=== PATIENT | male | born 1950 | race Caucasian/White ===

== ENCOUNTER 2021-05-13 16:16 | Inpatient (IN) | payer OTHER, BC, SELFPAY ==
[~2021-05-13] VITALS: Ht 177.8 cm; Wt 32.5 kg
[2021-05-13 16:16] VITALS: BP_SYST 130
--- NOTE | 2021-05-13 16:16 | NUR ---
Patient triaged and placed in bed 8. VSS and patient appears in no acute distress at this time. MD notified of need for MSE. Attached to monitor resting in [facility].
--- NOTE | 2021-05-13 16:20 | NUR ---
[facility] had recent right BKA procedure and there is a possible bone exposure pt reports 10/10 pain in the right extremtiy. Pt has bilateral lower extremity amputations. Pt is bed bound AAOX4. VSS no signs of distress. Pt has right extremity elevated.
--- NOTE | 2021-05-13 16:25 | NUR ---
ER at bedside examining patient.
--- NOTE | 2021-05-13 16:53 | NUR ---
X-ray at bedside.
--- NOTE | 2021-05-13 17:10 | NUR ---
Lab at bedside.
[2021-05-13 17:28] LABS: BASOPHILS % (AUTO) 0.4 % (0.0-2.0); EOSINOPHILS # (AUTO) 0.1 K/uL (0.0-0.4); EOSINOPHILS % (AUTO) 1.5 % (0.0-4.0); HEMATOCRIT 24.4 % (36-54); HEMOGLOBIN 8.5 g/dL (14.0-18.0); LYMPHOCYTES % (AUTO) 19.3 % (20.5-51.5); MEAN CORPUSCULAR HEMOGLOBIN 31 pg (27-31); MEAN CORPUSCULAR HGB CONC 35 % (32-36); MEAN CORPUSCULAR VOLUME 89 fL (79.0-98.0); MONOCYTES # (AUTO) 0.9 K/uL (0.0-1.0); NEUTROPHILS # (AUTO) 7.2 K/uL (1.8-7.7); NEUTROPHILS % (AUTO) 69.8 % (40.0-70.0); PLATELET COUNT (AUTO) 596 K/uL (130-430); RED BLOOD CELL COUNT(AUTO) 2.75 MIL/uL (4.2-6.2); RED CELL DISTRIBUTION WIDTH 17.7 % (9.0-15.0); WHITE BLOOD COUNT (AUTO) 10.3 K/uL (4.8-10.8)
[2021-05-13 18:03] LABS: CALCIUM 8.1 mg/dL (8.4-11.0); CREATININE 0.54 mg/dL (0.55-1.30); POTASSIUM 4.2 mmol/L (3.5-5.1)
[2021-05-13 18:08] LABS: ALBUMIN 1.4 g/dL (3.4-4.8); TOTAL BILIRUBIN 0.3 mg/dL (0.0-1.0)
[2021-05-13 18:19] LABS: INR 1.4 (0.80-1.20); PROTHROMBIN TIME 14.4 SECS (9.5-12.5)
[2021-05-13 18:33] LABS: C-REACTIVE PROTEIN QUANT 13.2 mg/dL (0-0.5)
--- NOTE | 2021-05-13 19:03 | NUR ---
# 20 gauge angiocath placed to RFA. Use of asceptic technique. Opsite placed over site. Blood return noted. Blood for lab drawn from site. Flushed with 10 cc of normal saline. No evidence of infiltration noted. Patient tolerated well.
--- NOTE | 2021-05-13 19:22 | NUR ---
Covid and MRSA swab collected and sent to lab.
--- NOTE | 2021-05-13 19:22 | NUR ---
Report given to Cheli.
--- NOTE | 2021-05-13 19:23 | NUR ---
Received endorsement from day shift, AAOX2, breathing spontaneously with O2 at 2L/MIN via nasal cannula, [id number] not in distress noted, With IV cannula g20 at right foreram noted, right stump noted. Admitted as a case of RT STUMP GANGRENE under the care of Dr. Padilla to Telemetry, awaiting for room.
[2021-05-13] MEDS ORDERED: VANCOMYCIN HCL 1 GM/NS PREMIX 250 ML IV ONE (20:30)
[2021-05-13] MEDS ORDERED: SEVOFLURANE 15 MIN GAS INH ONE ×2 (20:49→20:55)
[2021-05-13] MEDS ORDERED: MIDAZOLAM HCL 5 MG/5 ML VIAL IVP ONE (20:49)
[2021-05-13] MEDS ORDERED: METOCLOPRAMIDE HCL 10 MG/2 ML VIAL IVP ONE (20:49)
[2021-05-13] MEDS ORDERED: DEXAMETHASONE SOD PHOSPHATE 10 MG/ML VIAL IVP ONE (20:49)
[2021-05-13] MEDS ORDERED: fentaNYL CITRATE/PF 100 MCG/2 ML AMP IVP ONE (20:49)
[2021-05-13] MEDS ORDERED: LIDOCAINE 1% 10 MG/ML, 20 ML MDV IM ONE (20:49)
[2021-05-13] MEDS ORDERED: LR 1,000 ML IV.SOLN IV ONE (20:49)
[2021-05-13] MEDS ORDERED: PROPOFOL 200MG/ 20ML VIAL (DIPRIVAN) IV ONE ×2 (20:49→20:55)
[2021-05-13] MEDS ORDERED: ePHEDrine sulfate 50 MG/ML VIAL IM ONE (20:49)
[2021-05-13] MEDS ORDERED: NS IRRIG SOLN 1000 ML IR ONE ×2 (20:49→20:55)
[2021-05-13] MEDS ORDERED: KETOROLAC TROMETHAMINE 30 MG VIAL IVP ONE (20:55)
[2021-05-13] MEDS ORDERED: ONDANSETRON HCL 4 MG/2 ML VIAL IVP ONE (20:55)
--- NOTE | 2021-05-13 21:30 | NUR ---
Patient's code status is FULL CODE, paperwork completed and placed in chart.
[2021-05-13] MEDS ORDERED: VANCOMYCIN HCL 1000 MG/VIAL IV ONE (21:33)
[2021-05-13] MEDS ORDERED: PIPERACILLIN/TAZOBACTAM 3.375 GM/VIAL (ZOSYN) IV ONE (21:33)
--- NOTE | 2021-05-13 21:42 | NUR ---
Medication given as ordered, health teaching provided
[2021-05-13] MEDS: PIPERACILLIN/TAZO 3.375/DEX-IS 50 ML IV SCH (21:43)
--- NOTE | 2021-05-13 22:21 | NUR ---
Medication reconciliation completed with information provided by the patient medical record from facility. Any prior medication reconciliation on file was reviewed and corrected.
[2021-05-13] MEDS ORDERED: [UNRECOGNIZED DRUG - CODE] MC (22:22)
[2021-05-13] MEDS ORDERED: APIX5TAB PO (22:22)
[2021-05-13] MEDS ORDERED: ASPI-1155 PO (22:22)
[2021-05-13] MEDS ORDERED: HYDR-3921 PO (22:22)
[2021-05-13] MEDS ORDERED: CLON0.1T PO (22:22)
[2021-05-13] MEDS ORDERED: COLL30OI2 TP (22:22)
[2021-05-13] MEDS ORDERED: DIVA-72 PO (22:22)
[2021-05-13] MEDS ORDERED: TAMS-11 PO (22:22)
[2021-05-13] MEDS ORDERED: MOM PO (22:22)
[2021-05-13] MEDS ORDERED: NYST15CR2 TP (22:22)
[2021-05-13] MEDS ORDERED: CHOL100038 (22:22)
[2021-05-13] MEDS ORDERED: IPRA4AER INH (22:22)
[2021-05-13] MEDS ORDERED: HYDR-4497 (22:22)
[2021-05-13] MEDS ORDERED: MIRT7.5T11 PO (22:22)
[2021-05-13] MEDS ORDERED: ZINC10LO5 PO (22:22)
[2021-05-13] MEDS ORDERED: CRAN450T9 PO (22:22)
[2021-05-13] MEDS ORDERED: DILT60TA3 PO (22:22)
[2021-05-13] MEDS ORDERED: SILV20CR13 TP (22:22)
[2021-05-13] MEDS ORDERED: ASCO500T20 PO (22:22)
[2021-05-13] MEDS ORDERED: DOCU-156 PO (22:22)
[2021-05-13] MEDS ORDERED: INSU100V42 SUBCUT (22:22)
[2021-05-13] MEDS ORDERED: SENN-278 (22:22)
[2021-05-13] MEDS ORDERED: BISA10SU61 RC (22:22)
[2021-05-13] MEDS ORDERED: CARV6.2554 PO (22:22)
[2021-05-13] MEDS ORDERED: ACET325C6 PO (22:22)
[2021-05-13] MEDS ORDERED: ZINC10OI TP (22:22)
[2021-05-13] MEDS ORDERED: TRAM100T34 PO (22:22)
[2021-05-13] MEDS ORDERED: MULT15TA3 PO (22:22)
[2021-05-13] MEDS ORDERED: FERR-31 PO (22:22)
[2021-05-13] MEDS ORDERED: GLUC1VIA4 IM (22:22)
[2021-05-13] MEDS ORDERED: PANT40TA45 PO (22:22)
[2021-05-13] MEDS ORDERED: METH5TAB70 PO (22:22)
--- NOTE | 2021-05-13 22:29 | NUR ---
Transfer to Telemetry 118A via ACLS protocol. Licensed nurse present. IV present no signs or symptoms of infiltration.
--- NOTE | 2021-05-13 22:43 | NUR ---
ADMISSION NOTE Received patient from ER via kj, received report from MARYA PEREZ. Patient admitted with diagnosis of GANGREEN IN RIGHT STUMP. Patient oriented to hospital routine, call light, toileting and safety-patient verbalized understanding.
--- NOTE | 2021-05-13 22:59 | NUR ---
Endorsed to CHRIS Hernandez in stable condition for continuity of care.
[2021-05-13 23:00] VITALS: BP_SYST 99
--- NOTE | 2021-05-13 23:00 | NUR ---
INITIAL NOTES PATIENT RESTING, NO SIGNS OF DISTRESS NOTED. CALL LIGHT WITHIN REACH, PATIENT DEMONSTRATES PROPER CALL LIGHT USAGE, BED ALARM ON, BED AT LOWEST POSITION, BED LOCKED. FALL, SAFETY, RESPIRATORY, AND ISOLATION PRECAUTIONS IN PLACE. DISCUSSED PLAN OF CARE WITH PATIENT. WILL CONTINUE TO MONITOR.
[2021-05-14] VITALS: BP_SYST 122
--- NOTE | 2021-05-14 00:29 | NUR ---
PATIENT REFUSES TO TAKE PICTURES AND GET AEROBIC CULTURE AT THIS TIME DESPITE PATIENT EDUCATION PROVIDED. PATIENT ALSO COVERS FACE WITH A SHEET AND DOES NOT WANT TO UNCOVER THE SHEET WILL ATTEMPT AGAIN AT A LATER TIME.
--- NOTE | 2021-05-14 02:12 | NUR ---
CONSULT: CONSULT CALLED FOR DR. MELINDA Alberto SPOKE WITH KOJO NGUYEN REASON FOR CONSULT: WOUND GANGRENE REQUESTING CONSULT: DR. OSULLIVAN VIDEO CAMERA OPERATOR PHONE NUMBER: [phone]
--- NOTE | 2021-05-14 03:39 | NUR ---
PATIENT RESTING, NO SIGNS OF DISTRESS NOTED. WILL CONTINUE TO MONITOR.
[2021-05-14] MEDS ORDERED: PIPERACILLIN/TAZOBACTAM 3.375 GM/VIAL (ZOSYN) IV ONE (05:44)
[2021-05-14] MEDS: PIPERACILLIN/TAZO 3.375/DEX-IS 50 ML IV SCH ×3 (06:10→21:14)
--- NOTE | 2021-05-14 06:30 | NUR ---
SPOKE TO DR. OSULLIVAN. RECEIVED NEW ORDERS FOR NORCO 10-325 Q4P FOR SEVERE PAIN, ACCU CHECK Q6, AND REGULAR INSULIN SLIDING SCALE, WOUND CARE AND WOUND CONSULT ORDERS. WILL FOLLOW THROUGH.
[2021-05-14] MEDS ORDERED: D5W 1,000 ML IV PRN (06:45)
[2021-05-14] MEDS ORDERED: DEXTROSE 50% JECT 50 ML DISP.SYRIN IVP PRN (06:45)
[2021-05-14] MEDS ORDERED: GLUCOSE (DEXTROSE) ORAL GEL -Adults PO PRN (06:45)
[2021-05-14] MEDS ORDERED: NALOXONE HCL 0.4 MG/ML AMP (NARCAN) IVP PRN (06:45)
--- NOTE | 2021-05-14 06:49 | NUR ---
CLOSING NOTES PATIENT RESTING, NO SIGNS OF DISTRESS NOTED. CALL LIGHT WITHIN REACH, BED ALARM ON, BED AT LOWEST POSITION, BED LOCKED. FALL, RESPIRATORY, ISOLATION, SAFETY, AND ASPIRATION PRECAUTIONS IN PLACE THROUGHOUT SHIFT. ALL NEEDS MET THROUGHOUT SHIFT. WILL ENDORSE CARE TO ONCOMING SHIFT.
--- NOTE | 2021-05-14 06:50 | NUR ---
Nutrition Update Arjun Scale 15 noted. Pt admitted for Gangrene Right stump Diet: [facility] BMI: 9.8 (?) kg/m2 RD to follow per nutrition care standards.
[2021-05-14 08:00] VITALS: BP_SYST 123
--- NOTE | 2021-05-14 08:00 | NUR ---
initial notes rec patient asleep but arousable to stimuli. ivl infusing well with on the r forearm. no infiltration noted. dressing on the r aka stump is intact and dry. no sob noted.
[2021-05-14 12:00] VITALS: BP_SYST 118
[2021-05-14] MEDS: VANCOMYCIN HCL 500 MG in NS 100 ML IV SCH ×2 (12:36→22:25)
--- NOTE | 2021-05-14 12:40 | NUR ---
rounds accucheck was done. no hypo hyperglycemic reaction noted. vancomycin abx was infused. assisted to use urinal and xochilt well.
--- NOTE | 2021-05-14 15:13 | NUR ---
CONSULTATION PAGED REASON FOR CONSULTATION:RIGHT STUMP EVAL WAS CONSULT CALLED?Y PERSON WHO WAS NOTIFIED:[facility]CHO CONSULTING PHYSICIAN:MASOUD POTTER FACSIMILE OPERATOR SPECIALTY:SURGEON FACSIMILE OPERATOR PHONE NUMBER:[phone] REQUESTING PHYSICIAN:ADAIR ENRIQUEZ
[2021-05-14] MEDS ORDERED: cloNIDine HCL 0.1 MG TABLET PO PRN (15:15)
--- NOTE | 2021-05-14 15:23 | NUR ---
CONSULTATION PAGED REASON FOR CONSULTATION:HX AFIB WAS CONSULT CALLED?Y PERSON WHO WAS NOTIFIED:EXCHANGE CONSULTING PHYSICIAN:ANNABELLA WEINBERG POLICY AND PLANNING MANAGER SPECIALTY:CARDIO POLICY AND PLANNING MANAGER PHONE NUMBER:[phone] REQUESTING PHYSICIAN:DORIS CARRASQUILLO NP
[2021-05-14 16:00] VITALS: BP_SYST 120
--- NOTE | 2021-05-14 18:30 | NUR ---
closing notes no sob noted. ambulates to the br.
--- NOTE | 2021-05-14 19:00 | NUR ---
OPENING NOTES PATIENT RESTING, NO SIGNS OF DISTRESS NOTED. CALL LIGHT WITHIN REACH, PATIENT DEMONSTRATES PROPER CALL LIGHT USAGE, BED ALARM ON, BED AT LOWEST POSITION, BED LOCKED. FALL, SAFETY, RESPIRATORY, AND ASPIRATION PRECAUTIONS IN PLACE. DISCUSSED PLAN OF CARE WITH PATIENT. RECEIVED REPORT THAT PATIENT TO NOT RECEIVE ELIQUIS IF PATIENT TO HAVE SURGERY. WILL CONTINUE TO MONITOR.
[2021-05-14] MEDS ORDERED: APIXABAN 2.5 MG TABLET PO SCH (21:00)
[2021-05-14] MEDS: TAMSULOSIN HCL 0.4 MG CAP PO SCH (21:13)
[2021-05-14] MEDS: DIVALPROEX SODIUM 250 MG TABLET(DEPAKOTE) PO SCH (21:14)
[2021-05-14] MEDS: CARVEDILOL 6.25 MG TABLET (COREG) PO SCH (21:14)
[2021-05-14] MEDS: ASCORBIC ACID 500 MG TABLET PO SCH (21:14)
[2021-05-14] MEDS: HYDROcodone/ACETAMIN 10-325 MG TAB PO PRN (22:24)
[2021-05-14] MEDS: NYSTATIN/TRIAMCIN 15 GM TOPICAL CREAM TP SCH (22:25)
--- NOTE | 2021-05-15 | NUR ---
PATIENT DRINKS ORANGE JUICE AND APPLE SAUCE. PATIENT REFUSES KAZ CRACKERS OR SALTINES BUT EATS SOME CHEERIOS IN APPLE SAUCE. NO ASPIRATION NOTED AND NO S/S OF HYPOGLYCEMIA NOTED. WILL CONTINUE TO MONITOR.
[2021-05-15 00:41] VITALS: BP_SYST 100; BP_SYST 101
--- NOTE | 2021-05-15 02:10 | NUR ---
DR. LAWRENCE MAKING ROUNDS.
--- NOTE | 2021-05-15 04:35 | NUR ---
PATIENT RESTING, NO SIGNS OF DISTRESS NOTED. WILL CONTINUE TO MONITOR.
[2021-05-15] MEDS: PIPERACILLIN/TAZO 3.375/DEX-IS 50 ML IV SCH ×3 (05:13→21:15)
--- NOTE | 2021-05-15 05:22 | NUR ---
WOUND CARE AND INCONTINENCE CARE PROVIDED. PATIENT TOLERATED WELL. PATIENT ALSO DRINKS ORANGE JUICE WITH NO SIGNS OF ASPIRATION OR HYPOGLYCEMIA. PATIENT REFUSES TO HAVE MORE BITES OF APPLE SAUCE AND KAZ CRACKERS. WILL FOLLOW UP AND FOLLOW CLOSELY, PATIENT ALSO REQUESTS TO NOT BE BOTHERED. PATIENT EDUCATION PROVIDED FOR S/S OF HYPOGLYCEMIA, PATIENT STATES HE UNDERSTANDS. WILL CONTINUE TO MONITOR.
[2021-05-15 07:02] LABS: BASOPHILS % (AUTO) 0.7 % (0.0-2.0); EOSINOPHILS % (AUTO) 13.3 % (0.0-4.0); HEMATOCRIT 23.3 % (36-54); LYMPHOCYTES # (AUTO) 1.1 K/uL (1.0-5.5); LYMPHOCYTES % (AUTO) 15.5 % (20.5-51.5); MEAN CORPUSCULAR HEMOGLOBIN 31 pg (27-31); MEAN CORPUSCULAR HGB CONC 34 % (32-36); MEAN CORPUSCULAR VOLUME 89 fL (79.0-98.0); MONOCYTES # (AUTO) 0.6 K/uL (0.0-1.0); NEUTROPHILS # (AUTO) 4.5 K/uL (1.8-7.7); NEUTROPHILS % (AUTO) 62.5 % (40.0-70.0); PLATELET COUNT (AUTO) 572 K/uL (130-430); RED BLOOD CELL COUNT(AUTO) 2.62 MIL/uL (4.2-6.2); RED CELL DISTRIBUTION WIDTH 17.8 % (9.0-15.0)
[2021-05-15 07:13] LABS: CREATININE 0.5 mg/dL (0.55-1.30); POTASSIUM 3.6 mmol/L (3.5-5.1)
--- NOTE | 2021-05-15 08:00 | NUR ---
AM NOTES PATIENT REFUSED TO BE TOUCHED,STATED THAT HE IS STILL TRYING TO USE THE URINAL SWANN AND WILL CALL FOR HELP ONCE DONE.
[2021-05-15 08:11] LABS: WHITE BLOOD COUNT (AUTO) 7.2 K/uL (4.8-10.8)
[2021-05-15] MEDS ORDERED: DILTIAZEM HCL 60 MG TABLET PO SCH (09:00)
[2021-05-15 11:00] VITALS: BP_SYST 111
--- NOTE | 2021-05-15 11:00 | NUR ---
NOTES PATIENT BEING NON COMPLIANT WITH CARE, REFUSED HYGIENE CARE. URINATED ALREADY WITH DARK YELLOW URINE NOTED. PATIENT WITH BOTH BELOW THE KNEE AMPUTATION WITH MULTIPLE WOUND BUTTOCKS, RIGHT KNEE AND RIGHT POSTERIOR CALF, FOR DRESSING CHANGED TODAY.
[2021-05-15] MEDS: DOCUSATE SODIUM 100 MG CAPSULE PO SCH (11:25)
[2021-05-15] MEDS: HYDROcodone/ACETAMIN 10-325 MG TAB PO PRN (11:25)
[2021-05-15] MEDS: DILTIAZEM HCL 120 MG CAP.SR.24H PO SCH ×2 (11:26→14:24)
[2021-05-15] MEDS: PANTOPRAZOLE SODIUM 40 MG TAB PO SCH (11:27)
[2021-05-15] MEDS: ASCORBIC ACID 500 MG TABLET PO SCH ×2 (11:27→21:13)
[2021-05-15] MEDS: FERROUS SULFATE 325 MG TABLET.DR PO SCH (11:27)
[2021-05-15] MEDS: methIMAzole 5 MG TABLET PO SCH (11:28)
[2021-05-15] MEDS: CARVEDILOL 6.25 MG TABLET (COREG) PO SCH ×2 (11:28→21:14)
[2021-05-15] MEDS: ASPIRIN 81 MG TAB.CHEW PO SCH (11:29)
[2021-05-15] MEDS: VANCOMYCIN HCL 500 MG in NS 100 ML IV SCH ×2 (11:30→23:38)
[2021-05-15 12:00] VITALS: BP_SYST 98
--- NOTE | 2021-05-15 13:00 | NUR ---
WOUND CARE TREATMENT WOUND CARE TREATMENT DONE, PATIENT HAS LEFT SIDE WEAKNESS, S/P CVA, FED BY CHIEF RADIOLOGY FOR BREAKFAST AND LUNCH. SEEN BY WOUND CARE NURSE.
--- NOTE | 2021-05-15 13:43 | NUR ---
Dietitian Recommendations *Recommend: add Huan BID and Nepro BID. *Continue CCHO diet. *Encourage PO intake. Please see Nutritional Assessment for details. SURINDER, RD
[2021-05-15] MEDS: BALSAM PERU/CASTOR OIL 60 GM OINT...G. TP SCH (14:21)
[2021-05-15] MEDS: NYSTATIN/TRIAMCIN 15 GM TOPICAL CREAM TP SCH ×2 (14:22→23:39)
[2021-05-15] MEDS: SILVER SULFADIAZINE 1%, 25 GM TOPICAL CREAM (SSD) TP SCH (14:22)
--- NOTE | 2021-05-15 14:30 | NUR ---
WOUND EVALUATION: Late note for 05/15/21 at 1430 secondary to patient care. Wound Consult received from Dr. Padilla. Thank you, Dr. Padilla, for the consult. Patient received in a Aydin Bed with an Isoflex SUDHAKAR mattress, awake, alert, confused. Past medical history: Paroxysmal Atrial Fibrillation, Hypertension, Diabetes Mellitus, Chronic Kidney Disease, Peripheral Vascular Disease, status post bilateral Below Knee Amputations, history of CVA with residual left-sided weakness, Hyperthyroidism, Psychiatric Disorder, Right Total Hip Replacement, GERD, acute kidney injury, Hypothyroidism, Hyperlipidemia, Psychosis, DVT. Recent Labs: WBC 7.2, RBC 2.62, hemoglobin 8.0, hematocrit 23.3, platelets 572, sodium 133, BUN 15, creatinine 0.50, GFR 175, calcium 8.0, PT 14.4, INR 1.4, PTT 35.7. Microbiology: Blood culture results x2 in progress. Wound culture results in progress. MRSA screen results in progress. Intrinsic factors that delay wound healing: Extrinsic factors that delay wound healing: Decreased mobility. Wound Assessment: 1. Right Lower Extremity, superior to site 2: Chronic ischemic wound, present on admission. Wound bed has 100% black eschar. No odor, no drainage. Lara-wound pink. Dry, stable. Wound measures 2.1 cm x 1.7 cm. Recommend: No dressing needed. Plessis site with Betadine daily. 2. Right Residual Limb BKA site: Unstageable pressure ulcer, present on admission. Wound bed has 80% black slough, 10% yellow slough, 10% red tissue. Mild odor, scant yellow purulent drainage. Lara-wound intact. Not able to measure wound secondary to patient anxious about lifting moving his leg. Recommend: Cleanse wound with normal saline Apply moisture barrier cream to lara-wound. Apply Venelex ointment to wound bed. Cover with foam dressing. Wrap with Zacarias wrap. Perform wound care daily, and as needed for dressing soiling or dislodgement. Encourage patient to offload site with pillows at all times (patient wants to use a folded towel, but a folded towel would not offload the site). 3. Right Knee: Chronic ischemic wound, present on admission. Wound bed has 100% black eschar. No odor, no drainage. Lara-wound pink. Dry, stable. Wound measures 1.4 cm x 2.0 cm. Recommend: No dressing needed. Plessis site with Betadine daily. 4. Right Sacral area: Unstageable pressure ulcer, present on admission. Wound bed has 100% yellow slough. No odor, no drainage. Lara-wound erythematous, intact. Surrounding tissue has scar tissue. Wound measures 2.0 cm x 2.0 cm. Recommend: Cleanse wound with normal saline Apply moisture barrier cream to lara-wound. Apply Venelex ointment to wound bed. Cover with foam dressing. Perform wound care daily, and as needed for dressing soiling or dislodgement. 5. Right Buttock: Unstageable pressure ulcer, present on admission. Wound bed has 100% yellow slough. No odor, no drainage. Lara-wound erythematous, intact. Surrounding tissue has scar tissue. Undermining present at 12 oclock measuring 1.9 cm. Wound measures 2.0 cm x 3.0 cm. Recommend: Cleanse wound with normal saline Apply moisture barrier cream to lara-wound. Apply Venelex ointment to wound bed. Pack wound with 1/4 inch iodoform packing strip. Cover with foam dressing. Perform wound care daily, and as needed for dressing soiling or dislodgement. Also recommend: Encourage and assist patient as needed with repositioning every 2 hours with pillow support and off-load pressure areas with pillows for pressure re-distribution. Offload, elevate and float bilateral lower extremities with one pillow lengthwise under each extremity at all times. Perform skin care and monitor skin integrity Q shift. Use moisture barrier cream on buttocks and other moisture susceptible areas QID and as needed for soiling. Initiate low air-loss therapy.
[2021-05-15 16:26] VITALS: BP_SYST 92
--- NOTE | 2021-05-15 18:00 | NUR ---
NOTES SEEN BY DR CASTORENA TODAY, BARBARA STILL ON HOLD FOR POSSIBLE SURGERY.
--- NOTE | 2021-05-15 19:35 | NUR ---
ROUNDS PATIENT RESTING COMFORTABLY IN BED, NOT IN DISTRESS, VITALS STABLE. DENIES PAIN AT THIS TIME. ASSESSMENT DONE AND DOCUMENTED. SEE FLOWSHEET. NEEDS ATTENDED TO. SAFETY MEASURES IN PLACED. CALL LIGHT PLACED WITHIN REACH.
[2021-05-15 20:00] VITALS: BP_SYST 114
--- NOTE | 2021-05-15 21:12 | NUR ---
MEDICATION DUE MEDICATIONS GIVEN ORDERED, TOLERATED WELL. WILL CONTINUE TO MONITOR.
[2021-05-15] MEDS: TAMSULOSIN HCL 0.4 MG CAP PO SCH (21:13)
[2021-05-15] MEDS: DIVALPROEX SODIUM 250 MG TABLET(DEPAKOTE) PO SCH (21:14)
--- NOTE | 2021-05-16 00:17 | NUR ---
PATIENT RESTING: Patient resting quietly. No acute distress noted. Vital signs within normal range.
--- NOTE | 2021-05-16 02:16 | NUR ---
ROUNDS PATIENT ASLEEP, RESPIRATIONS EVEN AND UNLABORED, WILL CONTINUE TO MONITOR.
--- NOTE | 2021-05-16 04:14 | NUR ---
PATIENT RESTING: Patient resting quietly. No acute distress noted. Vital signs within normal range.
[2021-05-16] MEDS: PIPERACILLIN/TAZO 3.375/DEX-IS 50 ML IV SCH ×3 (05:27→21:35)
[2021-05-16 06:47] LABS: CALCIUM 7.5 mg/dL (8.4-11.0); CREATININE 0.5 mg/dL (0.55-1.30); POTASSIUM 3.2 mmol/L (3.5-5.1)
[2021-05-16 06:51] LABS: BASOPHILS % (AUTO) 0.5 % (0.0-2.0); EOSINOPHILS # (AUTO) 1.1 K/uL (0.0-0.4); EOSINOPHILS % (AUTO) 16.1 % (0.0-4.0); HEMATOCRIT 22.1 % (36-54); HEMOGLOBIN 7.6 g/dL (14.0-18.0); LYMPHOCYTES # (AUTO) 1.3 K/uL (1.0-5.5); LYMPHOCYTES % (AUTO) 19.9 % (20.5-51.5); MEAN CORPUSCULAR HEMOGLOBIN 31 pg (27-31); MEAN CORPUSCULAR HGB CONC 35 % (32-36); MEAN CORPUSCULAR VOLUME 90 fL (79.0-98.0); MONOCYTES # (AUTO) 0.7 K/uL (0.0-1.0); MONOCYTES % (AUTO) 10.9 % (1.7-9.3); NEUTROPHILS # (AUTO) 3.5 K/uL (1.8-7.7); NEUTROPHILS % (AUTO) 52.6 % (40.0-70.0); PLATELET COUNT (AUTO) 538 K/uL (130-430); RED BLOOD CELL COUNT(AUTO) 2.48 MIL/uL (4.2-6.2); RED CELL DISTRIBUTION WIDTH 17.4 % (9.0-15.0); WHITE BLOOD COUNT (AUTO) 6.6 K/uL (4.8-10.8)
--- NOTE | 2021-05-16 06:52 | NUR ---
CLOSING NOTES PATIENT AWAKE, MADE CLEAN AND COMFORTABLE, NO PAIN AT THIS TIME. ALL NEEDS ATTENDED TO. SAFETY MEASURES MAINTAINED. CALL LIGHT PLACED WITHIN REACH.
[2021-05-16 08:00] VITALS: BP_SYST 109
[2021-05-16] MEDS: ASPIRIN 81 MG TAB.CHEW PO SCH (08:41)
[2021-05-16] MEDS: DOCUSATE SODIUM 100 MG CAPSULE PO SCH (08:42)
[2021-05-16] MEDS: DILTIAZEM HCL 120 MG CAP.SR.24H PO SCH (08:42)
[2021-05-16] MEDS: PANTOPRAZOLE SODIUM 40 MG TAB PO SCH (08:42)
[2021-05-16] MEDS: FERROUS SULFATE 325 MG TABLET.DR PO SCH (08:42)
[2021-05-16] MEDS: CARVEDILOL 6.25 MG TABLET (COREG) PO SCH ×2 (08:43→21:36)
[2021-05-16] MEDS: ASCORBIC ACID 500 MG TABLET PO SCH ×2 (08:43→21:36)
[2021-05-16] MEDS: methIMAzole 5 MG TABLET PO SCH (08:43)
[2021-05-16] MEDS: BALSAM PERU/CASTOR OIL 60 GM OINT...G. TP SCH (08:47)
[2021-05-16] MEDS: NYSTATIN/TRIAMCIN 15 GM TOPICAL CREAM TP SCH ×2 (08:47→21:37)
[2021-05-16] MEDS: SILVER SULFADIAZINE 1%, 25 GM TOPICAL CREAM (SSD) TP SCH (08:47)
--- NOTE | 2021-05-16 10:00 | NUR ---
Note Pt resting in bed and denies any needs at this time. Resting in bed with sheet over his head.
[2021-05-16] MEDS: VANCOMYCIN HCL 500 MG in NS 100 ML IV SCH ×2 (11:14→23:53)
[2021-05-16 12:40] VITALS: BP_SYST 96
--- NOTE | 2021-05-16 16:00 | NUR ---
Note Pt was seen and assessed by Dr Padilla at bedside. Pt was checked on q1' and PRN all shift for needs and care. Pt was assisted in eating his breakfast and lunch. Pt refused all turning and hygiene care all shift. No needs noted at this time. Call light within reach.
[2021-05-16 16:54] VITALS: BP_SYST 99
--- NOTE | 2021-05-16 19:00 | NUR ---
Note Pt resting in bed and denies any needs at this time. Pt checked on and he does not want to be disturbed at this time. Call light within reach.
[2021-05-16] MEDS: TAMSULOSIN HCL 0.4 MG CAP PO SCH (21:36)
[2021-05-16] MEDS: DIVALPROEX SODIUM 250 MG TABLET(DEPAKOTE) PO SCH (21:36)
[2021-05-17 01:10] VITALS: BP_SYST 113
[2021-05-17] MEDS: PIPERACILLIN/TAZO 3.375/DEX-IS 50 ML IV SCH ×3 (05:20→21:53)
[2021-05-17 08:22] VITALS: BP_SYST 115
[2021-05-17] MEDS: PANTOPRAZOLE SODIUM 40 MG TAB PO SCH (10:17)
[2021-05-17] MEDS: FERROUS SULFATE 325 MG TABLET.DR PO SCH (10:17)
[2021-05-17] MEDS: ASPIRIN 81 MG TAB.CHEW PO SCH (10:17)
[2021-05-17] MEDS: ASCORBIC ACID 500 MG TABLET PO SCH ×2 (10:17→21:53)
[2021-05-17] MEDS: DOCUSATE SODIUM 100 MG CAPSULE PO SCH (10:17)
[2021-05-17] MEDS: CARVEDILOL 6.25 MG TABLET (COREG) PO SCH ×2 (10:17→21:57)
[2021-05-17] MEDS: DILTIAZEM HCL 120 MG CAP.SR.24H PO SCH (10:18)
[2021-05-17] MEDS: methIMAzole 5 MG TABLET PO SCH (10:18)
[2021-05-17] MEDS: SILVER SULFADIAZINE 1%, 25 GM TOPICAL CREAM (SSD) TP SCH (10:20)
[2021-05-17] MEDS: BALSAM PERU/CASTOR OIL 60 GM OINT...G. TP SCH ×2 (10:21→16:21)
[2021-05-17] MEDS: NYSTATIN/TRIAMCIN 15 GM TOPICAL CREAM TP SCH ×2 (10:21→21:57)
[2021-05-17] MEDS: VANCOMYCIN HCL 500 MG in NS 100 ML IV SCH (10:22)
[2021-05-17 12:03] VITALS: BP_SYST 135
[2021-05-17 16:00] VITALS: BP_SYST 147
--- NOTE | 2021-05-17 18:56 | NUR ---
CLOSING NOTES: PATIENT RESTING IN BED. NO SIGNS OF ACUTE DISTRESS NOTED. FALL AND SAFETY PRECAUTION REINFORCED. BED LOCKED, ALARM ON AND IN LOWEST POSITION.
[2021-05-17 20:00] VITALS: BP_SYST 126
[2021-05-17] MEDS: TAMSULOSIN HCL 0.4 MG CAP PO SCH (21:53)
[2021-05-17] MEDS: DIVALPROEX SODIUM 250 MG TABLET(DEPAKOTE) PO SCH (21:53)
[2021-05-18] VITALS: BP_SYST 106
[2021-05-18] MEDS: VANCOMYCIN HCL 500 MG in NS 100 ML IV SCH ×3 (00:25→22:05)
[2021-05-18 00:30] VITALS: BP_SYST 106
--- NOTE | 2021-05-18 05:00 | NUR ---
PATIENT REFUSES TO HAVE WOUND CARE PROVIDED FOR SACRAL WOUND. WAS ABLE TO PROVIDE PERINEAL CARE AND PROVIDE WOUND CARE FOR RIGHT STUMP. WILL TRY AGAIN AT A LATER TIME.
[2021-05-18] MEDS: PIPERACILLIN/TAZO 3.375/DEX-IS 50 ML IV SCH ×3 (05:41→21:01)
[2021-05-18 08:00] VITALS: BP_SYST 123
--- NOTE | 2021-05-18 08:00 | NUR ---
OPENING NOTE PATIENT RESTING, NO SIGNS OF DISTRESS NOTED. CALL LIGHT WITHIN REACH, PATIENT DEMONSTRATES PROPER CALL LIGHT USAGE, BED ALARM ON, BED AT LOWEST POSITION, BED LOCKED. FALL, SAFETY, RESPIRATORY, AND ASPIRATION PRECAUTIONS IN PLACE. DISCUSSED PLAN OF CARE WITH PATIENT. WILL CONTINUE TO MONITOR.
[2021-05-18] MEDS: DOCUSATE SODIUM 100 MG CAPSULE PO SCH (09:20)
[2021-05-18] MEDS: ASPIRIN 81 MG TAB.CHEW PO SCH (09:20)
[2021-05-18] MEDS: ASCORBIC ACID 500 MG TABLET PO SCH ×2 (09:20→21:22)
[2021-05-18] MEDS: BALSAM PERU/CASTOR OIL 60 GM OINT...G. TP SCH ×2 (09:20→09:26)
[2021-05-18] MEDS: PANTOPRAZOLE SODIUM 40 MG TAB PO SCH (09:20)
[2021-05-18] MEDS: FERROUS SULFATE 325 MG TABLET.DR PO SCH (09:20)
[2021-05-18] MEDS: methIMAzole 5 MG TABLET PO SCH (09:20)
[2021-05-18] MEDS: DILTIAZEM HCL 120 MG CAP.SR.24H PO SCH (09:21)
[2021-05-18] MEDS: CARVEDILOL 6.25 MG TABLET (COREG) PO SCH ×2 (09:22→21:00)
[2021-05-18] MEDS: SILVER SULFADIAZINE 1%, 25 GM TOPICAL CREAM (SSD) TP SCH (10:41)
[2021-05-18] MEDS: NYSTATIN/TRIAMCIN 15 GM TOPICAL CREAM TP SCH ×2 (10:44→21:27)
[2021-05-18 12:00] VITALS: BP_SYST 116
[2021-05-18 16:42] VITALS: BP_SYST 115
--- NOTE | 2021-05-18 19:21 | NUR ---
CLOSING NOTE PATIENT FOUND LYING IN BED WITH NO COMPLAINTS OF PAIN OR DISCOMFORT. PATIENT WAS ELEVATED AND WAS FED DINNER. SAFETY, FALL AND ASPIRATION PRECAUTIONS IN PLACE. IV IS PATENT. BED IS IN LOWEST POSITION, LOCKED, RAILS UP AND CALL LIGHT IN REACH. ALL NEEDS MET THROUGHOUT SHIFT. WILL ENDORSE TO JANITOR CUSTODIAN.
--- NOTE | 2021-05-18 19:30 | NUR ---
Opening Note Received report. Pt Awake with bed sheet covered over head. Alert x4 and verbally responsive. On 2L NC O2 state 94%, no respiratory distress noted, unlabored. Has RFA IV patent and intact, SL. Thomas Cath patent and free draining yellow clear urine, bag secure to bedside. Call light within reach, bed to lowest/locked and alarmed. On safety fall/aspiration precaution. All needs attended to.
[2021-05-18] MEDS: DIVALPROEX SODIUM 250 MG TABLET(DEPAKOTE) PO SCH (21:22)
[2021-05-18] MEDS: TAMSULOSIN HCL 0.4 MG CAP PO SCH (21:22)
[2021-05-18 22:14] VITALS: BP_SYST 103
--- NOTE | 2021-05-19 | NUR ---
note Pt resting comfortably with sheet over head. verbally responsive. BP stable, no respiratory distress or labored breathing.
[2021-05-19 00:40] VITALS: BP_SYST 105
[2021-05-19] MEDS: PIPERACILLIN/TAZO 3.375/DEX-IS 50 ML IV SCH ×3 (05:09→22:49)
--- NOTE | 2021-05-19 06:29 | NUR ---
CLOSING NOTE Pt resting in bed with bed sheet over head. verbally responsive. Alertx4, labored breathing on exertion but no respiratory distress, on 2LNC O2 stat 97%. IV site patent and intact, no complications. All needs attended to. Call light within reach, bed to lowest and locked. On fall safety/aspiration precaution.
[2021-05-19 07:23] LABS: BASOPHILS # (AUTO) 0.1 K/uL (0.0-0.2); BASOPHILS % (AUTO) 0.7 % (0.0-2.0); EOSINOPHILS # (AUTO) 0.8 K/uL (0.0-0.4); EOSINOPHILS % (AUTO) 10.6 % (0.0-4.0); HEMATOCRIT 22.3 % (36-54); HEMOGLOBIN 7.6 g/dL (14.0-18.0); LYMPHOCYTES # (AUTO) 1.8 K/uL (1.0-5.5); LYMPHOCYTES % (AUTO) 24.6 % (20.5-51.5); MEAN CORPUSCULAR HEMOGLOBIN 31 pg (27-31); MEAN CORPUSCULAR HGB CONC 34 % (32-36); MEAN CORPUSCULAR VOLUME 90 fL (79.0-98.0); MONOCYTES # (AUTO) 0.7 K/uL (0.0-1.0); MONOCYTES % (AUTO) 9.5 % (1.7-9.3); NEUTROPHILS # (AUTO) 4.1 K/uL (1.8-7.7); NEUTROPHILS % (AUTO) 54.6 % (40.0-70.0); PLATELET COUNT (AUTO) 559 K/uL (130-430); RED BLOOD CELL COUNT(AUTO) 2.49 MIL/uL (4.2-6.2); RED CELL DISTRIBUTION WIDTH 17.5 % (9.0-15.0); WHITE BLOOD COUNT (AUTO) 7.4 K/uL (4.8-10.8)
[2021-05-19 07:36] LABS: CALCIUM 7.7 mg/dL (8.4-11.0); CREATININE 0.42 mg/dL (0.55-1.30); POTASSIUM 3.4 mmol/L (3.5-5.1)
[2021-05-19 08:00] VITALS: BP_SYST 119
[2021-05-19] MEDS: BALSAM PERU/CASTOR OIL 60 GM OINT...G. TP SCH ×2 (09:00→09:40)
[2021-05-19] MEDS: FERROUS SULFATE 325 MG TABLET.DR PO SCH (09:37)
[2021-05-19] MEDS: DOCUSATE SODIUM 100 MG CAPSULE PO SCH (09:37)
[2021-05-19] MEDS: PANTOPRAZOLE SODIUM 40 MG TAB PO SCH (09:38)
[2021-05-19] MEDS: DILTIAZEM HCL 120 MG CAP.SR.24H PO SCH (09:38)
[2021-05-19] MEDS: ASPIRIN 81 MG TAB.CHEW PO SCH (09:38)
[2021-05-19] MEDS: ASCORBIC ACID 500 MG TABLET PO SCH ×2 (09:38→22:45)
[2021-05-19] MEDS: methIMAzole 5 MG TABLET PO SCH (09:39)
[2021-05-19] MEDS: CARVEDILOL 6.25 MG TABLET (COREG) PO SCH ×2 (09:39→22:45)
[2021-05-19] MEDS: SILVER SULFADIAZINE 1%, 25 GM TOPICAL CREAM (SSD) TP SCH (09:39)
[2021-05-19] MEDS: NYSTATIN/TRIAMCIN 15 GM TOPICAL CREAM TP SCH ×2 (09:46→22:50)
[2021-05-19] MEDS: VANCOMYCIN HCL 500 MG in NS 100 ML IV SCH ×2 (10:55→22:49)
[2021-05-19 12:00] VITALS: BP_SYST 110
[2021-05-19 16:00] VITALS: BP_SYST 109
--- NOTE | 2021-05-19 16:00 | NUR ---
dr menjivar seen patient.
--- NOTE | 2021-05-19 19:15 | NUR ---
OPENING NOTES Patient resting in bed - no s/s pain or distress noted. Respirations even and unlabored - head of bed elevated NC 2L. IV site patent - no s/s redness, infection, or infiltration. Bed locked and in lowest position. Call light within reach - bed alarm on.
--- NOTE | 2021-05-19 19:20 | NUR ---
CLOSING NOTE PATIENT FOUND LYING IN BED WITH NO COMPLAINTS OF PAIN OR DISCOMFORT. PATIENT WAS ELEVATED AND WAS FED DINNER. SAFETY, FALL AND ASPIRATION PRECAUTIONS IN PLACE. IV IS PATENT. BED IS IN LOWEST POSITION, LOCKED, RAILS UP AND CALL LIGHT IN REACH. ALL NEEDS MET THROUGHOUT SHIFT. WILL ENDORSE TO EMT BASIC.
[2021-05-19 20:00] VITALS: BP_SYST 106
[2021-05-19] MEDS: DIVALPROEX SODIUM 250 MG TABLET(DEPAKOTE) PO SCH (22:42)
[2021-05-19] MEDS: TAMSULOSIN HCL 0.4 MG CAP PO SCH (22:45)
--- NOTE | 2021-05-20 | NUR ---
ROUNDING NOTES Patient resting in bed - no s/s pain or distress noted. Respirations even and unlabored - head of bed elevated NC 2L. IV site patent - no s/s redness, infection, or infiltration. Bed locked and in lowest position. Call light within reach - bed alarm on. Patient refuses vital signs checks at this time. Will try again later. Educated about risks of refusal - patient still refuses.
[2021-05-20] MEDS: HYDROcodone/ACETAMIN 10-325 MG TAB PO PRN ×3 (01:09→21:28)
[2021-05-20] MEDS: PIPERACILLIN/TAZO 3.375/DEX-IS 50 ML IV SCH (05:54)
--- NOTE | 2021-05-20 07:20 | NUR ---
CLOSING NOTES Patient resting in bed - no s/s pain or distress noted. Respirations even and unlabored - head of bed elevated NC 2L. IV site patent - no s/s redness, infection, or infiltration. Bed locked and in lowest position. Call light within reach - bed alarm on. Patient refusing vital signs checks. Will endorse to dayshift.
--- NOTE | 2021-05-20 08:00 | NUR ---
AM ROUNDS: SLEEPING DURING ROUNDS. WITH BILATERAL BELOW KNEE AMPUTEE. DRESSING AT THE RIGHT KNEE,CLEAN AND DRY.CALL LIGHT WITH IN REACH. BED LOCKED AT LOWEST POSITION. CONTINUE TO MONITOR. STABLE.
[2021-05-20] MEDS: DILTIAZEM HCL 120 MG CAP.SR.24H PO SCH (09:00)
[2021-05-20] MEDS: CARVEDILOL 6.25 MG TABLET (COREG) PO SCH ×2 (09:00→21:16)
[2021-05-20] MEDS: BALSAM PERU/CASTOR OIL 60 GM OINT...G. TP SCH ×2 (09:00→09:45)
[2021-05-20] MEDS: ASCORBIC ACID 500 MG TABLET PO SCH ×2 (09:43→21:15)
[2021-05-20] MEDS: DOCUSATE SODIUM 100 MG CAPSULE PO SCH (09:43)
[2021-05-20] MEDS: FERROUS SULFATE 325 MG TABLET.DR PO SCH (09:43)
[2021-05-20] MEDS: PANTOPRAZOLE SODIUM 40 MG TAB PO SCH (09:43)
[2021-05-20] MEDS: ASPIRIN 81 MG TAB.CHEW PO SCH (09:43)
[2021-05-20] MEDS: methIMAzole 5 MG TABLET PO SCH (09:44)
[2021-05-20] MEDS: SILVER SULFADIAZINE 1%, 25 GM TOPICAL CREAM (SSD) TP SCH (09:46)
[2021-05-20] MEDS: NYSTATIN/TRIAMCIN 15 GM TOPICAL CREAM TP SCH ×2 (09:47→21:17)
--- NOTE | 2021-05-20 11:51 | NUR ---
Nutrition F/U Admitting Diagnosis: Gangrene Right stump Medical History Comment: Pt w/: Right stump cellulitis, Hx of Atrial fibrillation, HTN, Acute Kidney injury, Hyperlipidemia, Anemia per MD notes. PMH: Atrial fibrillation, CVA, GERD, HTN, OLINDA, Hypothyroidism, Hyperlipidemia, Psychosis, DVT. SARS-CoV-2 Ag Rapid 05/13 Negative Subjective Information: Pt was seen in bed during visit, covered in blankets and was did not move even after multiple prompting. RD observed Nepro at bedside tray, unopened. Huan was not seen in tray. Per EMR, pt was seen by surgery on 05/19 and discussed possible debridement and further amputation in tibia and fibula to have further cushion on the skin and subcutaneous tissue over the bones, a/w medical clearance prior to surgery. Pt is on 2L NC, Arjun scale: service desk specialist note on 05/15: 1. Right Lower Extremity, superior to site 2: Chronic ischemic wound, present on admission. 2. Right Residual Limb BKA site: Unstageable pressure ulcer, present on admission. 3. Right Knee: Chronic ischemic wound, present on admission. 4. Right Sacral area: Unstageable pressure ulcer, present on admission. 5. Right Buttock: Unstageable pressure ulcer, present on admission. Abdomen Is soft and nondistended w/ active bowel sounds. PO intake records show pt w/ varied appetite and consumes 25-50% of meals. Pt is w/ increased nutrient needs for wound healing and is not meeting adequate nutrition needs w/ current PO intake. Current Diet Order/Nutrition Support: Mechanical soft CCHO diet Nepro BID, Huan BID x 4 days Pertinent Medications: Protonix, Ferrous sulfate, Colace, VIT C, Piperacillin/tazobactam. Pertinent Labs 05/19 Na 137 WNL, K 3.4L, BG 83WNL, POC BG 82WNL, BUN 8WNL, Cre 0.42L Height: 5 feet, 10.00 inches Weight: 68 pounds/ 30.435756 kilograms. Bed scale weight: 77.5# (05/16) -may be skewed d/t beddings and pillows. Body Mass Index: 9.76 kg/m2 [place]/Adjusted Body Weight: 166#/ 75kg; Adj IBW Bilateral BKA: 146#/ 66kg Estimated Energy Expenditure (kcals/day) 0740-6576 Kcal/day (30-35 kcal/kg Adj IBW for wound healing) Estimated Protein Required (g/day) 66-99 gm/day (1-1.5 gm/kg Adj IBW for wound healing) Estimated Fluid Required (l/day) per MD (CKD) Problem/Etiology/Signs/Symptoms Increased protein needs r/t skin breakdown AEB increased protein needs. (*ongoing) Expected Outcomes/Goals Monitor appetite and PO intake w/ goal of pt meeting more than 75% of estimated nutritional needs, labs trending WNL, normal GI function, skin integrity/wt maintenance. Dietitian Recommendations *Recommend: continue CCHO diet , Huan BID and Nepro BID. *Encourage PO intake. Follow Up High Risk: F/U in 2-3days
--- NOTE | 2021-05-20 11:58 | NUR ---
Dietitian Recommendations *Recommend: continue CCHO diet , Huan BID and Nepro BID. *Encourage PO intake. Please see Nutrition F/U note for details. SURINDER, RD
[2021-05-20 12:48] VITALS: BP_SYST 138
[2021-05-20 16:06] VITALS: BP_SYST 136
--- NOTE | 2021-05-20 18:28 | NUR ---
CLOSING NOTES: PATIENT IN THE BED,RESTING. CALL LIGHT WITH IN REACH. BED LOCKED AT LOWEST POSITION. SAFETY MEASURES RENDERED. CONTINUE TO MONITOR.
[2021-05-20 21:00] VITALS: BP_SYST 135
--- NOTE | 2021-05-20 21:05 | NUR ---
ASSIST ENCOURAGE for Position change patient is verbally indicative chest movement symmetrical also unlabored / .
[2021-05-20] MEDS: CIPROFLOXACIN HCL 500 MG TABLET PO SCH (21:15)
[2021-05-20] MEDS: TAMSULOSIN HCL 0.4 MG CAP PO SCH (21:15)
[2021-05-20] MEDS: AMOXICILLIN/CLAVULANATE POTASSIUM 875 MG TABLET PO SCH (21:15)
[2021-05-20] MEDS: DIVALPROEX SODIUM 250 MG TABLET(DEPAKOTE) PO SCH (21:16)
--- NOTE | 2021-05-21 | NUR ---
APPLE JUICE po given patient tolerate with crackers .
[2021-05-21 01:22] VITALS: BP_SYST 129
--- NOTE | 2021-05-21 02:48 | NUR ---
NORCO 10/325 MG PO administer for GENERAL PAIN & HELPFUL , patient is Resting / .
[2021-05-21] MEDS: HYDROcodone/ACETAMIN 10-325 MG TAB PO PRN (06:59)
--- NOTE | 2021-05-21 08:00 | NUR ---
AM ROUNDS: PATIENT SLEEPING DURING ROUNDS ON SUPINE,BILATERAL BKA. BEDSIDE REPORT GIVEN BY NIGHT NURSE FAM. CALL LIGHT WITH IN REACH. BED LOCKED AT LOWEST POSITION. BED ALARM ON. STABLE.
[2021-05-21] MEDS: DILTIAZEM HCL 120 MG CAP.SR.24H PO SCH (09:00)
[2021-05-21] MEDS: BALSAM PERU/CASTOR OIL 60 GM OINT...G. TP SCH ×2 (09:00→10:00)
[2021-05-21] MEDS: CARVEDILOL 6.25 MG TABLET (COREG) PO SCH ×2 (09:00→21:08)
[2021-05-21 09:30] VITALS: BP_SYST 104
[2021-05-21] MEDS: DOCUSATE SODIUM 100 MG CAPSULE PO SCH (09:58)
[2021-05-21] MEDS: ASPIRIN 81 MG TAB.CHEW PO SCH (09:58)
[2021-05-21] MEDS: ASCORBIC ACID 500 MG TABLET PO SCH ×2 (09:58→21:08)
[2021-05-21] MEDS: PANTOPRAZOLE SODIUM 40 MG TAB PO SCH (09:58)
[2021-05-21] MEDS: FERROUS SULFATE 325 MG TABLET.DR PO SCH (09:58)
[2021-05-21 09:59] LABS: CALCIUM 7.7 mg/dL (8.4-11.0); CREATININE 0.54 mg/dL (0.55-1.30); POTASSIUM 3.1 mmol/L (3.5-5.1)
[2021-05-21] MEDS: methIMAzole 5 MG TABLET PO SCH (09:59)
[2021-05-21] MEDS: NYSTATIN/TRIAMCIN 15 GM TOPICAL CREAM TP SCH ×2 (10:00→21:14)
[2021-05-21] MEDS: SILVER SULFADIAZINE 1%, 25 GM TOPICAL CREAM (SSD) TP SCH (10:01)
[2021-05-21] MEDS: CIPROFLOXACIN HCL 500 MG TABLET PO SCH ×2 (10:01→21:08)
[2021-05-21 10:04] LABS: BASOPHILS # (AUTO) 0.1 K/uL (0.0-0.2); LYMPHOCYTES # (AUTO) 1.5 K/uL (1.0-5.5); MEAN CORPUSCULAR HGB CONC 34 % (32-36); NEUTROPHILS # (AUTO) 3.4 K/uL (1.8-7.7); RED CELL DISTRIBUTION WIDTH 17.5 % (9.0-15.0)
[2021-05-21] MEDS: AMOXICILLIN/CLAVULANATE POTASSIUM 875 MG TABLET PO SCH ×2 (10:09→21:07)
[2021-05-21 10:20] LABS: BASOPHILS % (AUTO) 1.1 % (0.0-2.0); EOSINOPHILS # (AUTO) 0.8 K/uL (0.0-0.4); EOSINOPHILS % (AUTO) 13.4 % (0.0-4.0); HEMOGLOBIN 7.5 g/dL (14.0-18.0); LYMPHOCYTES % (AUTO) 23.2 % (20.5-51.5); MEAN CORPUSCULAR HEMOGLOBIN 31 pg (27-31); MEAN CORPUSCULAR VOLUME 90 fL (79.0-98.0); MONOCYTES # (AUTO) 0.5 K/uL (0.0-1.0); NEUTROPHILS % (AUTO) 54.3 % (40.0-70.0); PLATELET COUNT (AUTO) 501 K/uL (130-430); RED BLOOD CELL COUNT(AUTO) 2.44 MIL/uL (4.2-6.2); WHITE BLOOD COUNT (AUTO) 6.3 K/uL (4.8-10.8)
[2021-05-21 12:00] VITALS: BP_SYST 115
[2021-05-21 16:00] VITALS: BP_SYST 107
[2021-05-21] MEDS ORDERED: POTASSIUM CHLORIDE 20 MEQ TAB.PRT.SR PO ONE (16:45)
--- NOTE | 2021-05-21 17:20 | NUR ---
SURGEON CALL BACK: INFORMED SURGEON,PATIENT CLEARED MEDICALLY FOR SURGERY BY DR OSULLIVAN .WITH ORDERS SECURE CONSENT FOR DEBRIDEMENT AND REVISION OF RIGHT STUMP AMPUTATION.TYPE AND SCREEN 2 UNITS PRBC.NPO POST MIDNIGHT.
--- NOTE | 2021-05-21 17:46 | NUR ---
PAGED PAGED MASOUD POTTER AT [phone] SPOKE WITH YASMANY.
--- NOTE | 2021-05-21 18:48 | NUR ---
CLOSING NOTES: PATIENT RESTING. CALL LIGHT WITH IN REACH. BED LOCKED AT LOWEST POSITION. BED ALARM ON. NO ACUTE DISTRESS.
[2021-05-21 20:00] VITALS: BP_SYST 125
--- NOTE | 2021-05-21 20:00 | NUR ---
Opening notes Pt resting in bed, no s/s distress noted. VSS, afebrile. Pt ate dinner, tolerated well. IV saline locked R. and L. FA clear and patent. Pt aware he will be NPO post midnight for surgery tomorrow. Eliquis on hold. Pt refused to be touched and refused wound dressing change. John BKA. Call light within reach. Bed low, locked, siderails up x2. To monitor.
[2021-05-21] MEDS: DIVALPROEX SODIUM 250 MG TABLET(DEPAKOTE) PO SCH (21:08)
[2021-05-21] MEDS: TAMSULOSIN HCL 0.4 MG CAP PO SCH (21:08)
--- NOTE | 2021-05-21 23:49 | NUR ---
Rounds Pt asleep, easily awakens, VSS. BS checked 96. Pt drank apple juice. NPO post midnight. Pt refused to sign consent at this time, pt states he does not want to be bothered. Will try again in AM. Safety measures in place. To monitor.
[2021-05-22] VITALS: BP_SYST 122
--- NOTE | 2021-05-22 05:58 | NUR ---
Closing notes Pt alert, awake, no s/s distress noted. CXR done at bedside. Pt refused photos taken of R. knee ulcer and sacral wounds. Per pt he only wants the doctor to touch it. BS checked 85. Pt maintained NPO. Pt signed consent for surgery and blood transfusion. Placed in chart. Will page MD for IVF. Call light within reach. Bed low, locked, siderails up x2, alarm on. To endorse to AM nurse.
[2021-05-22] MEDS: D5/0.45 NS 1,000 ML IV SCH (06:38)
[2021-05-22 07:53] VITALS: BP_SYST 127
[2021-05-22] MEDS: ASPIRIN 81 MG TAB.CHEW PO SCH (08:08)
[2021-05-22] MEDS: DILTIAZEM HCL 120 MG CAP.SR.24H PO SCH (08:08)
[2021-05-22] MEDS: AMOXICILLIN/CLAVULANATE POTASSIUM 875 MG TABLET PO SCH ×2 (08:08→21:00)
[2021-05-22] MEDS: DOCUSATE SODIUM 100 MG CAPSULE PO SCH (08:09)
[2021-05-22] MEDS: CARVEDILOL 6.25 MG TABLET (COREG) PO SCH ×2 (08:09→21:00)
[2021-05-22] MEDS: FERROUS SULFATE 325 MG TABLET.DR PO SCH (08:09)
[2021-05-22] MEDS: PANTOPRAZOLE SODIUM 40 MG TAB PO SCH (08:09)
[2021-05-22] MEDS: ASCORBIC ACID 500 MG TABLET PO SCH ×2 (08:10→21:00)
[2021-05-22] MEDS: BALSAM PERU/CASTOR OIL 60 GM OINT...G. TP SCH ×2 (08:10)
[2021-05-22] MEDS: SILVER SULFADIAZINE 1%, 25 GM TOPICAL CREAM (SSD) TP SCH (08:10)
[2021-05-22] MEDS: methIMAzole 5 MG TABLET PO SCH (08:10)
[2021-05-22] MEDS: NYSTATIN/TRIAMCIN 15 GM TOPICAL CREAM TP SCH ×2 (10:00→22:00)
[2021-05-22] MEDS: CIPROFLOXACIN HCL 500 MG TABLET PO SCH ×2 (10:00→22:00)
[2021-05-22 12:00] VITALS: BP_SYST 134
--- NOTE | 2021-05-22 12:00 | NUR ---
NOTE Pt asleep on and off all shift. Pt aware he is NPO since midnight for surgery at 1830. Pt wants to be left alone and not awakened for turning side to side or to do accu checks. Pt gets uncooperative and resistant when VS taken or hygiene care given. Pt's left forearm IV site intact and patent infusing IVF's well. Pt's bed in low position and bed alarm on all shift. Pt checked on q1' and PRN all shift for needs and care. Call light within reach.
[2021-05-22 16:00] VITALS: BP_SYST 139
--- NOTE | 2021-05-22 18:15 | NUR ---
Note Pt was spoken to by anesthesiologist Dr Mckeon at bedside, questions/concerns were answered at this time. Pt was checked on q1' and PRN all shift for needs and care. Pt's bed in low position and bed alarm on all shift. IV in left forearm intact and patent infusing IVF's well. Pt used urinal all shift to void. Pt still NPO and surgery to be done at 2030 per OR dept. (Dr Quan is running late). Call light within reach.
[2021-05-22 20:50] VITALS: BP_SYST 136
--- NOTE | 2021-05-22 20:50 | NUR ---
Pt transported to surgery via bed, with OR nurse Alexandru. VSS. No distress noted.
[2021-05-22] MEDS: TAMSULOSIN HCL 0.4 MG CAP PO SCH (21:00)
[2021-05-22] MEDS: DIVALPROEX SODIUM 250 MG TABLET(DEPAKOTE) PO SCH (21:00)
[2021-05-22] MEDS ORDERED: KETOROLAC TROMETHAMINE 30 MG VIAL IVP PRN (21:45)
[2021-05-22] MEDS ORDERED: NALOXONE HCL 0.4 MG/ML AMP (NARCAN) IVP PRN (21:45)
[2021-05-22] MEDS ORDERED: METOCLOPRAMIDE HCL 10 MG/2 ML VIAL IVP PRN (21:45)
[2021-05-22] MEDS: HYDROmorphone 1 MG/ML INJ. CARTRIDGE IVP PRN ×3 (22:10→22:40)
[2021-05-22] MEDS ORDERED: HYDROmorphone 1 MG/ML INJ. CARTRIDGE ONE ×2 (22:11→22:34)
--- NOTE | 2021-05-22 23:15 | NUR ---
Back from PACU Pt back from recovery at 2310. Report received from CHRIS Cox. Pt AAOx4, VSS, no s/s distress noted. O2 100% 2L NC, pt denies pain. R. foot dressing clean and intact, floated on pillow. Blood sugar checked 114. Resumed pt's previous diet. Asked HS for sandwich/food per pt request. Call light within reach. To monitor.
[2021-05-23 02:09] VITALS: BP_SYST 113
[2021-05-23] MEDS: D5/0.45 NS 1,000 ML IV SCH ×2 (02:45→21:35)
--- NOTE | 2021-05-23 06:29 | NUR ---
Closing notes Pt Alert, awake, no s/s distress noted. BS checked 113. IV saline locked L. FA 20 clear and patent. R. stump dressing intact maintained elevated on pillow. Call light within reach. Bed low, locked, siderails up x3. To endorse to AM nurse.
[2021-05-23] MEDS: SILVER SULFADIAZINE 1%, 25 GM TOPICAL CREAM (SSD) TP SCH (08:40)
[2021-05-23] MEDS: BALSAM PERU/CASTOR OIL 60 GM OINT...G. TP SCH ×2 (08:40)
[2021-05-23] MEDS: CARVEDILOL 6.25 MG TABLET (COREG) PO SCH ×2 (08:44→21:34)
[2021-05-23] MEDS: ASPIRIN 81 MG TAB.CHEW PO SCH (08:47)
[2021-05-23] MEDS: FERROUS SULFATE 325 MG TABLET.DR PO SCH (08:47)
[2021-05-23] MEDS: DILTIAZEM HCL 120 MG CAP.SR.24H PO SCH (08:47)
[2021-05-23] MEDS: DOCUSATE SODIUM 100 MG CAPSULE PO SCH (08:47)
[2021-05-23] MEDS: ASCORBIC ACID 500 MG TABLET PO SCH ×2 (08:47→21:33)
[2021-05-23] MEDS: PANTOPRAZOLE SODIUM 40 MG TAB PO SCH (08:47)
[2021-05-23] MEDS: methIMAzole 5 MG TABLET PO SCH (08:47)
[2021-05-23] MEDS: AMOXICILLIN/CLAVULANATE POTASSIUM 875 MG TABLET PO SCH ×2 (08:47→21:33)
[2021-05-23] MEDS: NYSTATIN/TRIAMCIN 15 GM TOPICAL CREAM TP SCH ×2 (10:00→21:34)
--- NOTE | 2021-05-23 10:00 | NUR ---
Note Pt was assisted with eating his breakfast by PUG MILL OPERATOR HELPER. Pt's IV in left forearm intact and patent. Right stump dressing has some drainage on pillow. Pt will not let RN check the site or reinforce stump dressing. Call light within reach.
[2021-05-23] MEDS: CIPROFLOXACIN HCL 500 MG TABLET PO SCH ×2 (11:03→21:34)
[2021-05-23 12:36] VITALS: BP_SYST 171
[2021-05-23 16:50] VITALS: BP_SYST 140
--- NOTE | 2021-05-23 18:15 | NUR ---
Note Pt resting in bed and has refused to turn side to side all shift for promotion and circulation of back/shoulders.Pt was checked on q1' and PRN all shft for needs and care. Call light within reach. Pt's bed in low position and bed alarm on all shift.
--- NOTE | 2021-05-23 19:15 | NUR ---
OPENING NOTE/REFUSED IV SITE/REFUSE WOUND CARE REPORT RECEIVED FROM DAYSFLFT NURSE. PATIENT RECEIVED LYING IN BED, AWAKE, NO S/S OF ACUTE DISTRESS NOTED. BREATHING EVEN AND UNLABORED, HOB SLIGHTLY RAISED, NASAL CANULA ATTACHED PROPERLY, ON 2L OF OXYGEN. IV SITE PATENT, NO SIGNS OF INFILTRATION OR INFECTION NOTED. PATIENT REFUSING IVF AT THIS TIME, EDUCATED ON ITS PURPOSE AND BENEFITS, PATIENT STILL REFUSES. DRESSING ON RIGHT STUMP, DRAINAGE NOTED, PATIENT REFUSING FOR RN TO RE-ENFORCE DRESSING, PATIENT EDUCATED ON BENEFIT AND PURPOSE, PATIENT STILL REFUSES. CALL LIGHT WITH PATIENT. BED ALARM ON. BED IS LOCKED AND AT LOWEST POSITION. WILL CONTINUE TO MONITOR.
[2021-05-23 20:00] VITALS: BP_SYST 145
[2021-05-23] MEDS: DIVALPROEX SODIUM 250 MG TABLET(DEPAKOTE) PO SCH (21:33)
[2021-05-23] MEDS: TAMSULOSIN HCL 0.4 MG CAP PO SCH (21:34)
--- NOTE | 2021-05-23 21:40 | NUR ---
REFUSE IVF/REFUSE WOUND CARE PATIENT REFUSING IVF AND WOUND CARE AT THIS TIME, PATIENT EDUCATED ON ITS PURPOSE AND BENEFITS, PATIENT STILL REFUSES. ALL NEEDS MET. BED ALARM ON. CALL LIGHT WITH PATIENT. WILL CONTINUE TO MONITOR.
--- NOTE | 2021-05-24 | NUR ---
FINGERSTICK/REFUSE WOUNDCARE/REFUSE IVF FINGERSTICK DONE AT THIS TIME, BS WNL, NO COVERAGE NEEDED. PATIENT STILL REFUSING WOUND CARE AND IVF AT THIS TIME. EDUCATION PROVIDED, PATIENT VERBALIZED UNDERSTANDING. WILL CONTINUE TO ENCOURAGE.
[2021-05-24 01:25] VITALS: BP_SYST 113
--- NOTE | 2021-05-24 05:00 | NUR ---
REFUSE WOUND CARE/REFUSE IVF PATIENT STILL REFUSING WOUND CARE AND IVF AT THIS TIME. EDUCATED ON ITS PURPOSE AND BENEFITS, PATIENT STILL REFUSES.
--- NOTE | 2021-05-24 06:28 | NUR ---
CLOSING NOTE PATIENT IN BED, ASLEEP. NO S/S OF ACUTE DISTRESS NOTED. BREATHING EVEN AND UNLABORED. IV SITE PATENT, NO SIGNS OF INFILTRATION OR INFECTION NOTED. SKIN WARM AND DRY TO TOUCH. ALL NEEDS MET. BED ALARM ON. WILL CONTINUE TO MONITOR UNTIL PATIENT CARE IS ENDORSED TO ONCOMING DAYSHIFT NURSE.
[2021-05-24 08:00] VITALS: BP_SYST 137
--- NOTE | 2021-05-24 08:56 | NUR ---
GEN SURGEON DR MARTE WAS CALLED, RE: SEVERE PAIN. SPOKE TO ERIC.
[2021-05-24] MEDS: ASPIRIN 81 MG TAB.CHEW PO SCH (09:38)
[2021-05-24] MEDS: DOCUSATE SODIUM 100 MG CAPSULE PO SCH (09:38)
[2021-05-24] MEDS: AMOXICILLIN/CLAVULANATE POTASSIUM 875 MG TABLET PO SCH ×2 (09:38→21:16)
[2021-05-24] MEDS: PANTOPRAZOLE SODIUM 40 MG TAB PO SCH (09:38)
[2021-05-24] MEDS: DILTIAZEM HCL 120 MG CAP.SR.24H PO SCH (09:39)
[2021-05-24] MEDS: CIPROFLOXACIN HCL 500 MG TABLET PO SCH ×2 (09:39→21:16)
[2021-05-24] MEDS: ASCORBIC ACID 500 MG TABLET PO SCH ×2 (09:40→21:15)
[2021-05-24] MEDS: HYDROcodone/ACETAMIN 10-325 MG TAB PO PRN (09:40)
[2021-05-24] MEDS: CARVEDILOL 6.25 MG TABLET (COREG) PO SCH ×2 (09:40→21:15)
[2021-05-24] MEDS: FERROUS SULFATE 325 MG TABLET.DR PO SCH (09:45)
[2021-05-24] MEDS: BALSAM PERU/CASTOR OIL 60 GM OINT...G. TP SCH ×2 (09:47→09:48)
[2021-05-24] MEDS: SILVER SULFADIAZINE 1%, 25 GM TOPICAL CREAM (SSD) TP SCH (09:48)
[2021-05-24] MEDS: NYSTATIN/TRIAMCIN 15 GM TOPICAL CREAM TP SCH ×2 (09:49→21:16)
[2021-05-24] MEDS: methIMAzole 5 MG TABLET PO SCH (09:50)
[2021-05-24 12:04] VITALS: BP_SYST 115
--- NOTE | 2021-05-24 13:03 | NUR ---
Nutrition F/U Admitting Diagnosis: Gangrene Right stump Medical History Comment: Pt w/: Right stump cellulitis, Hx of Atrial fibrillation, HTN, Acute Kidney injury, Hyperlipidemia, Anemia per MD notes. PMH: Atrial fibrillation, CVA, GERD, HTN, OLINDA, Hypothyroidism, Hyperlipidemia, Psychosis, DVT. SARS-CoV-2 Ag Rapid 05/13 Negative Subjective Information: RD bedside visit deferred d/t high RD load. 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 Right Lower Extremity, superior to site 2: Chronic ischemic wound, present on admission. 2. Right Residual Limb BKA site: Unstageable pressure ulcer, present on admission. 3. Right Knee: Chronic ischemic wound, present on admission. 4. Right Sacral area: Unstageable pressure ulcer, present on admission. 5. Right Buttock: Unstageable pressure ulcer, present on admission. Pt is not yet meeting nutritional demands, however, current diet order remains appropriate. Encouragement at meal times is warranted. Current Diet Order/Nutrition Support: CCHO, mechanical soft diet w/ Nepro BID, Huan BID x1 day Pertinent Medications: protonix, ferrous sulfate, colace, VIT C, piperacillin/tazobactam Pertinent Labs: 05/24: POC BG 92 WNL; 05/21: K 3.1 L, BG 104 H, CRE 0.42 L Ht: 5'10"/70" Wt: 68#/30.8 kg. Bed scale wt: 77.5# (05/16) -- may be skewed d/t beddings and pillows. Body Mass Index: 9.76 kg/m2 [place]/Adjusted Body Weight: 166#/ 75kg; Adj IBW Bilateral BKA: 146#/ 66kg Estimated Energy Expenditure (kcals/day) 4083-2350 Kcal/day (30-35 kcal/kg Adj IBW for wound healing) Estimated Protein Required (g/day) 66-99 gm/day (1-1.5 gm/kg Adj IBW for wound healing) Estimated Fluid Required (l/day) per MD (CKD) Problem/Etiology/Signs/Symptoms Increased protein needs r/t skin breakdown AEB increased protein needs. (*ongoing) Expected Outcomes/Goals Monitor appetite and PO intake w/ goal of pt meeting more than 75% of estimated nutritional needs, labs trending WNL, normal GI function, skin integrity/wt maintenance. Dietitian Recommendations * Recommend continuing CCHO, mechanical soft diet w/ Huan BID and Nepro BID (supplements provide an additional 1030 kcal/day and 43 gm protein/day) * Encourage increase PO intake Follow Up High Risk: F/U in 2-3 days
--- NOTE | 2021-05-24 13:09 | NUR ---
Dietitian Recommendations * Recommend continuing CCHO, mechanical soft diet w/ Huan BID and Nepro BID (supplements provide an additional 1030 kcal/day and 43 gm protein/day) * Encourage increase PO intake LP, RD Please refer to Nutrition F/U for details.
[2021-05-24 16:03] VITALS: BP_SYST 128
[2021-05-24] MEDS: D5/0.45 NS 1,000 ML IV SCH (18:45)
--- NOTE | 2021-05-24 19:15 | NUR ---
OPENING NOTE/REFUSE IVF/REFUSE NASAL CANULA REPORT RECEIVED FROM DAYSHIFT NURSE. PATIENT RECEIVED LYING IN BED, AWAKE, NO S/S OF ACUTE DISTRESS. NASAL CANULA REMOVED, PATIENT REFUSES TO HAVE IT ON, SPO2 AT 97. PATIENT REFUSES IVF TO BE ATTACHED. BREATHING IS EVEN AND UNLABORED. RIGHT STUMP ELEVATED ON PILLOW, NO SIGNS OF ACTIVE BLEEDING. CALL LIGHT WITH PATIENT. BED IS LOCKED AND AT LOWEST POSITION. WILL CONTINUE TO MONITOR .
[2021-05-24 20:00] VITALS: BP_SYST 119
[2021-05-24] MEDS: DIVALPROEX SODIUM 250 MG TABLET(DEPAKOTE) PO SCH (21:15)
[2021-05-24] MEDS: TAMSULOSIN HCL 0.4 MG CAP PO SCH (21:15)
--- NOTE | 2021-05-24 22:00 | NUR ---
REFUSE WOUND CARE/REFUSE IVF PATIENT REFUSING IVF TO BE HOOKED UP TO IV SITE. PATIENT REFUSING WOUND CARE AND REFUSING TO BE TURNED. PATIENT EDUCATED ON PURPOSE AND BENEFITS. PATIENT STATED " LET ME SLEEP". WILL CONTINUE TO ENCOURAGE THROUGHOUT SHIFT.
--- NOTE | 2021-05-25 00:30 | NUR ---
FINGERSTICK/REFUSE IVF/REFUSE WOUND CARE FINGER STICK DONE AT THIS TIME, BS WNL. PATIENT STILL REFUSING IVF AND WOUND CARE. WILL CONTINUE TO ENCOURAGE THROUGHOUT SHIFT.
--- NOTE | 2021-05-25 06:36 | NUR ---
CLOSING NOTE PATIENT IN BED, ASLEEP, NO S/S OF ACUTE DISTRESS NOTED. BREATHING EVEN AND UNLABORED. IV SITE PATENT, NO SIGNS OF INFILTRATION OR INFECTION NOTED. DRESSING ON RIGHT STUMP IS ATTACHED, ELEVATED, NO ACTIVE BLEEDING NOTED. ALL NEEDS MET THROUGHOUT SHIFT. FALL AND SAFETY PRECAUTIONS MAINTAINED THROUGHOUT SHIFT. WILL CONTINUE TO MONITOR UNTIL PATIENT CARE IS ENDORSED TO ONCOMING DAYSHIFT NURSE.
[2021-05-25 08:57] VITALS: BP_SYST 136
[2021-05-25] MEDS: ASPIRIN 81 MG TAB.CHEW PO SCH (08:59)
[2021-05-25] MEDS: DOCUSATE SODIUM 100 MG CAPSULE PO SCH (08:59)
[2021-05-25] MEDS: ASCORBIC ACID 500 MG TABLET PO SCH ×2 (08:59→21:00)
[2021-05-25] MEDS: AMOXICILLIN/CLAVULANATE POTASSIUM 875 MG TABLET PO SCH ×2 (08:59→22:16)
[2021-05-25] MEDS: PANTOPRAZOLE SODIUM 40 MG TAB PO SCH (08:59)
[2021-05-25] MEDS: CARVEDILOL 6.25 MG TABLET (COREG) PO SCH ×2 (08:59→22:29)
[2021-05-25] MEDS: FERROUS SULFATE 325 MG TABLET.DR PO SCH (08:59)
[2021-05-25] MEDS: DILTIAZEM HCL 120 MG CAP.SR.24H PO SCH (08:59)
[2021-05-25] MEDS: SILVER SULFADIAZINE 1%, 25 GM TOPICAL CREAM (SSD) TP SCH (09:00)
[2021-05-25] MEDS: BALSAM PERU/CASTOR OIL 60 GM OINT...G. TP SCH ×2 (09:00)
[2021-05-25] MEDS: methIMAzole 5 MG TABLET PO SCH (09:03)
[2021-05-25] MEDS: NYSTATIN/TRIAMCIN 15 GM TOPICAL CREAM TP SCH ×2 (10:00→22:31)
[2021-05-25] MEDS: CIPROFLOXACIN HCL 500 MG TABLET PO SCH ×2 (12:26→22:16)
[2021-05-25] MEDS: D5/0.45 NS 1,000 ML IV SCH (14:45)
[2021-05-25 16:00] VITALS: BP_SYST 135
--- NOTE | 2021-05-25 18:26 | NUR ---
Patient refused Patient refused IV fluids, wound care and to be turned. Provided education patient still refuses.
[2021-05-25 20:00] VITALS: BP_SYST 127
[2021-05-25] MEDS: TAMSULOSIN HCL 0.4 MG CAP PO SCH (22:16)
[2021-05-25] MEDS: DIVALPROEX SODIUM 250 MG TABLET(DEPAKOTE) PO SCH (22:16)
[2021-05-25] MEDS: HYDROcodone/ACETAMIN 10-325 MG TAB PO PRN (22:30)
--- NOTE | 2021-05-26 01:30 | NUR ---
pt refused for this comic writer to do his accu check even with teaching and he refused his dressing change teaching given wihout effect
[2021-05-26 08:00] VITALS: BP_SYST 134
--- NOTE | 2021-05-26 08:00 | NUR ---
PATIENT IN BED, NO S/S OF DISTRESS, DRESSING INTACT BUT SOILED ON R EXTREMITY, REFUSED DRESSING CHANGE OR REINFORCEMENT, IV INTACT PATENT, WILL FEED ALL MEALS WITH TOTAL ASSIST, A/O X4, BED IN LOWEST LOCKED POSITION, CALL LIGHT WITHIN REACH, WILL CONTINUE TO MONITOR.
[2021-05-26] MEDS: PANTOPRAZOLE SODIUM 40 MG TAB PO SCH (09:29)
[2021-05-26] MEDS: AMOXICILLIN/CLAVULANATE POTASSIUM 875 MG TABLET PO SCH ×2 (09:29→20:07)
[2021-05-26] MEDS: ASCORBIC ACID 500 MG TABLET PO SCH ×2 (09:29→20:08)
[2021-05-26] MEDS: DILTIAZEM HCL 120 MG CAP.SR.24H PO SCH (09:29)
[2021-05-26] MEDS: CARVEDILOL 6.25 MG TABLET (COREG) PO SCH ×2 (09:29→20:09)
[2021-05-26] MEDS: FERROUS SULFATE 325 MG TABLET.DR PO SCH (09:29)
[2021-05-26] MEDS: ASPIRIN 81 MG TAB.CHEW PO SCH (09:30)
[2021-05-26] MEDS: DOCUSATE SODIUM 100 MG CAPSULE PO SCH (09:30)
[2021-05-26] MEDS: methIMAzole 5 MG TABLET PO SCH (09:35)
[2021-05-26] MEDS: NYSTATIN/TRIAMCIN 15 GM TOPICAL CREAM TP SCH ×2 (09:36→20:08)
[2021-05-26] MEDS: BALSAM PERU/CASTOR OIL 60 GM OINT...G. TP SCH ×2 (09:36→09:37)
[2021-05-26] MEDS: SILVER SULFADIAZINE 1%, 25 GM TOPICAL CREAM (SSD) TP SCH (09:41)
[2021-05-26] MEDS: D5/0.45 NS 1,000 ML IV SCH (10:45)
[2021-05-26] MEDS: CIPROFLOXACIN HCL 500 MG TABLET PO SCH ×2 (11:23→20:08)
[2021-05-26 12:00] VITALS: BP_SYST 128
--- NOTE | 2021-05-26 12:48 | NUR ---
CM note:faxed snf referral and dc order to [facility] February. CM to F/U .
--- NOTE | 2021-05-26 14:30 | NUR ---
PATIENT EDUCATED AND AGREED TO BE TURNED CLEANED AND HAVE LINENS CHANGED, APPLIED OPTIFOAM ON OPEN WOUND ON SACRUM. TOLERATED WELL. PATIENT REFUSED TO BE ON SIDE, IS STILL SUPINE.
[2021-05-26 16:00] VITALS: BP_SYST 129
--- NOTE | 2021-05-26 16:00 | NUR ---
SPOKE TO ORIN OSULLIVAN THE SURGEON AT BEDSIDE WITH PATIENT, HE STATED WOUND ON RIGHT BELOW THE KNEE AMPUTATION IS NOT HEALING BECAUSE BONE IS EXPOSED, SAID PATIENT NEEDS TO HAVE ABOVE THE KNEE AMPUTATION PERFORMED, PATIENT VERBALIZED FRUSTRATION AND STATED HE HAD TO THINK ABOUT IT, WILL FOLLOW UP WITH PATIENTS WISHES AND NOTIFY ACCORDINGLY. Addendum: 05/26/21 at 1644 by Gigi Real RN SPOKE TO SURGEON NOT DR OSULLIVAN
--- NOTE | 2021-05-26 16:43 | NUR ---
CM note: Late entry:RAKAN Smith at [facility] snf: there is no isolation bed today but her breeding manager is looking for bed at a sister facility. >> Per CHRIS Yu: per surgery may possibly be plan for right AKA due to poor healing surgical wound. The pt is sp surgery on 05/22 for:Debridement and revision of the amputation. Gangrenous stump of the right below-knee amputation. Addendum: 05/30/21 at 1355 by Jaclyn Gallo RN Late entry: jabari Ramírez: Pt can go to [facility] , address: [address] [place], [place] [address], tel [phone] . Please call [facility]/admitting cell # [phone] for bed assignment upon discharge.
--- NOTE | 2021-05-26 18:57 | NUR ---
PATIENT IN BED, NO S/S OF DISTRESS, DRESSING INTACT BUT SOILED ON R EXTREMITY, REFUSED DRESSING CHANGE OR REINFORCEMENT, IV INTACT PATENT, WAS FED ALL MEALS WITH TOTAL ASSIST, A/O X4, BED IN LOWEST LOCKED POSITION, CALL LIGHT WITHIN REACH, WILL ENDORSE CARE TO CORRECTIONS NURSE
[2021-05-26 19:00] VITALS: BP_SYST 125
--- NOTE | 2021-05-26 19:15 | NUR ---
pt.assessed.pt.presents challenges.pt.presents bilateral bka.pt.presents lt.arm weakness contracture.pt.presents general weakness.call light/telephone w/in access of the pt.
[2021-05-26 20:00] VITALS: BP_SYST 125
--- NOTE | 2021-05-26 20:00 | NUR ---
pt.assessed.v/s assessed values wnl.pt.had requested medication pain.i have administered norco;10/325mg po to assess efficacy of the pain medication per pain medication protocol.pt.repositioned.call light placed w/in access of the pt.
[2021-05-26] MEDS: HYDROcodone/ACETAMIN 10-325 MG TAB PO PRN (20:04)
[2021-05-26] MEDS: DIVALPROEX SODIUM 250 MG TABLET(DEPAKOTE) PO SCH (20:08)
[2021-05-26] MEDS: TAMSULOSIN HCL 0.4 MG CAP PO SCH (20:08)
--- NOTE | 2021-05-26 21:00 | NUR ---
pt.refused 2100pmedication administration.
--- NOTE | 2021-05-26 22:00 | NUR ---
pt.assessed.pt.repositioned.no c/o pain,nausea.call light placed w/in access of the pt.
[2021-05-27] VITALS: BP_SYST 109; BP_SYST 122
--- NOTE | 2021-05-27 | NUR ---
pt.assessed.v/s assessed values wnl.no c/o pain,nausea.pt.repositioned.call light place w/in access of the pt. Addendum: 05/27/21 at 0424 by Ben Bob RN blood glucose assessed [id number].
[2021-05-27] MEDS: HYDROcodone/ACETAMIN 10-325 MG TAB PO PRN ×3 (00:26→22:31)
--- NOTE | 2021-05-27 00:30 | NUR ---
pt.requested pain medication.i have administered norco:10/325mg po tab to assess efficacy of the pain med per pain med protocol.
--- NOTE | 2021-05-27 02:00 | NUR ---
pt.assessed.no c/o pain,nausea.pt.repositioned.call light placed w/in access of the pt.
--- NOTE | 2021-05-27 04:00 | NUR ---
pt.assessed.pt.repostioned.no c/o pain,nausea.call light w/in access of the pt.
--- NOTE | 2021-05-27 06:30 | NUR ---
pt.assessed.pt.assessed for cleanliness.pt.repositioned.no c/o pain,nausea.i have assessed the blood glucose value:98mg/dl. no requests posited@this hour.i have weighed the pt.2/t chf med hx.call light placed w/in access of the pt.
[2021-05-27] MEDS: D5/0.45 NS 1,000 ML IV SCH (06:45)
[2021-05-27 06:53] LABS: BASOPHILS # (AUTO) 0.1 K/uL (0.0-0.2); BASOPHILS % (AUTO) 0.8 % (0.0-2.0); EOSINOPHILS # (AUTO) 0.3 K/uL (0.0-0.4); EOSINOPHILS % (AUTO) 4.3 % (0.0-4.0); HEMOGLOBIN 7.2 g/dL (14.0-18.0); LYMPHOCYTES # (AUTO) 2.4 K/uL (1.0-5.5); LYMPHOCYTES % (AUTO) 35.3 % (20.5-51.5); MEAN CORPUSCULAR HEMOGLOBIN 31 pg (27-31); MEAN CORPUSCULAR HGB CONC 35 % (32-36); MEAN CORPUSCULAR VOLUME 90 fL (79.0-98.0); MONOCYTES # (AUTO) 0.8 K/uL (0.0-1.0); MONOCYTES % (AUTO) 11.4 % (1.7-9.3); NEUTROPHILS # (AUTO) 3.3 K/uL (1.8-7.7); NEUTROPHILS % (AUTO) 48.2 % (40.0-70.0); PLATELET COUNT (AUTO) 433 K/uL (130-430); RED BLOOD CELL COUNT(AUTO) 2.33 MIL/uL (4.2-6.2); RED CELL DISTRIBUTION WIDTH 17.3 % (9.0-15.0); WHITE BLOOD COUNT (AUTO) 6.9 K/uL (4.8-10.8)
[2021-05-27 07:29] LABS: CALCIUM 7.7 mg/dL (8.4-11.0); CREATININE 0.48 mg/dL (0.55-1.30); POTASSIUM 3.8 mmol/L (3.5-5.1)
[2021-05-27 08:00] VITALS: BP_SYST 121
[2021-05-27 08:11] LABS: HEMATOCRIT 20.8 % (36-54)
--- NOTE | 2021-05-27 08:30 | NUR ---
CALLED DR NGUYEN TO CONTACT DR OSULLIVAN TO REPORT CRITICAL LAB RESULT OF HEMOGLOBIN 7.2 AND HEMATOCRIT OF 20.8, AWAITING CALL BACK.
[2021-05-27] MEDS: DOCUSATE SODIUM 100 MG CAPSULE PO SCH (08:37)
[2021-05-27] MEDS: ASPIRIN 81 MG TAB.CHEW PO SCH (08:37)
[2021-05-27] MEDS: DILTIAZEM HCL 120 MG CAP.SR.24H PO SCH (08:37)
[2021-05-27] MEDS: PANTOPRAZOLE SODIUM 40 MG TAB PO SCH (08:37)
[2021-05-27] MEDS: FERROUS SULFATE 325 MG TABLET.DR PO SCH (08:38)
[2021-05-27] MEDS: CARVEDILOL 6.25 MG TABLET (COREG) PO SCH ×2 (08:38→22:19)
[2021-05-27] MEDS: ASCORBIC ACID 500 MG TABLET PO SCH ×2 (08:38→22:12)
[2021-05-27] MEDS: methIMAzole 5 MG TABLET PO SCH (08:45)
--- NOTE | 2021-05-27 08:45 | NUR ---
CALLED DR OSULLIVAN CELL PHONE WITH HELP OF COIN DEALER, NO ANSWER.
[2021-05-27] MEDS: BALSAM PERU/CASTOR OIL 60 GM OINT...G. TP SCH ×2 (08:46)
[2021-05-27] MEDS: NYSTATIN/TRIAMCIN 15 GM TOPICAL CREAM TP SCH ×2 (08:47→22:19)
[2021-05-27] MEDS: SILVER SULFADIAZINE 1%, 25 GM TOPICAL CREAM (SSD) TP SCH (08:52)
--- NOTE | 2021-05-27 09:00 | NUR ---
RE CALLED DR OSULLIVAN, STILL AWAITING CALL BACK. WILL FOLLOW UP WITH CHARGE NURSE.
--- NOTE | 2021-05-27 09:15 | NUR ---
CALL DR LAWRENCE, LEFT CALL BACK MESSAGE WITH DR NGUYEN, AWAITING CALL BACK
--- NOTE | 2021-05-27 10:45 | NUR ---
SPOKE TO DR MARTE, NOTIFIED OF CRITICAL LAB VALUE OF HEMOGLOBIN 7.2 AND HEMATOCRIT 20.8, SAID TO ORDER OCCULT STOOL SAMPLE, TRANSFUSE 1 UNIT PRBC, AND TO OBTAIN CONSENT FOR UPPER GI ENDOSCOPY AND BIOPSY. DR LAWRENCE CALL BACK DIRECTLY AFTER AND UPDATED HIM ON THE ORDERS DR MARTE ORDERED, HE SAID HE WOULD FOLLOW UP WITH ESTUARDO.
[2021-05-27] MEDS: CIPROFLOXACIN HCL 500 MG TABLET PO SCH ×2 (11:18→22:12)
[2021-05-27] MEDS: AMOXICILLIN/CLAVULANATE POTASSIUM 875 MG TABLET PO SCH ×2 (11:42→21:00)
[2021-05-27 12:00] VITALS: BP_SYST 120
--- NOTE | 2021-05-27 13:55 | NUR ---
Nutrition F/U Admitting Diagnosis: Gangrene Right stump Medical History Comment: Pt w/: Right stump cellulitis, Hx of Atrial fibrillation, HTN, Acute Kidney injury, Hyperlipidemia, Anemia per MD notes. PMH: Atrial fibrillation, CVA, GERD, HTN, OLINDA, Hypothyroidism, Hyperlipidemia, Psychosis, DVT. SARS-CoV-2 Ag Rapid 05/13 Negative Subjective Information: Pt was seen in bed around 1050 today, and c/o feeling hungry and very thirsty, breakfast tray at bedside, untouched. Pt is a feeder and he stated that nobody is able to assist him w/ meals since this morning, and RD helped pt have some sips of water and drink the Nepro. Pt is POD#5 S/P debridement and revision of the amputation of R BKA d/t gangrene (05/22). Surgery is following pt and rec for pt to have above the knee amputation to which the pt is still undecided. change management specialist saw pt on 05/15: 1. Right Lower Extremity, superior to site 2: Chronic ischemic wound, present on admission. 2. Right Residual Limb BKA site: Unstageable pressure ulcer, present on admission. 3. Right Knee: Chronic ischemic wound, present on admission. 4. Right Sacral area: Unstageable pressure ulcer, present on admission. 5. Right Buttock: Unstageable pressure ulcer, present on admission. Arjun scale: 10. Ptw/ 1+ non-pitting bilateral generalized edema. Abdomen is soft and distended w/ hypoactive bowel sounds. PO intake records show pt eats 10%-50% of meals and indicative of inadequate PO intake. Current Diet Order/Nutrition Support: CCHO, mechanical soft diet w/ Nepro BID, Huan BID x4 days Pertinent Medications: protonix, ferrous sulfate, colace, VIT C Pertinent Labs: 05/27: H/H 7.2L/20.8L, Na 134L, BG 98WNL, BUN 10WNL, Cre 0.48L Ht: 5'10"/70" Wt: 68#/30.8 kg. Bed scale wt: 77.5# (05/16), 81#/36 kg (05/27) -- may be skewed d/t beddings and pillows. Body Mass Index: 9.76 kg/m2. New: 11.7 kg./m2 (05/27) [place]/Adjusted Body Weight: 166#/ 75kg; Adj IBW Bilateral BKA: 146#/ 66kg Estimated Energy Expenditure (kcals/day) 0325-9092 Kcal/day (30-35 kcal/kg Adj IBW for wound healing) Estimated Protein Required (g/day) 66-99 gm/day (1-1.5 gm/kg Adj IBW for wound healing) Estimated Fluid Required (l/day) per MD (CKD) Problem/Etiology/Signs/Symptoms Increased protein needs r/t skin breakdown AEB increased protein needs. (*ongoing) Expected Outcomes/Goals Monitor appetite and PO intake w/ goal of pt meeting more than 75% of estimated nutritional needs, labs trending WNL, normal GI function, skin integrity/wt maintenance. Dietitian Recommendations * Recommend continuing CCHO, mechanical soft diet w/ Huan BID and Nepro BID (supplements provide an additional 1030 kcal/day and 43 gm protein/day) * Feeding assist during meals. * Encourage increase PO intake Follow Up High Risk: F/U in 2-3 days
--- NOTE | 2021-05-27 14:02 | NUR ---
Dietitian Recommendations * Recommend continuing CCHO, mechanical soft diet w/ Huan BID and Nepro BID (supplements provide an additional 1030 kcal/day and 43 gm protein/day) * Feeding assist during meals. * Encourage increase PO intake Please see Nutrition F/U note for details. SURINDER, AUSTYN
[2021-05-27 16:00] VITALS: BP_SYST 116
--- NOTE | 2021-05-27 16:40 | NUR ---
PATIENT RECEIVED 1 UNIT PACKED RED BLOOD CELLS, NO ADVERSE REACTIONS NOTED, TOLERATED WELL, DOCUMENTED AND PLACED IN CHART AND LAB FOLDER, WITNESS AT START OF INFUSION. DISPOSED OF IN HAZARD BIN.
--- NOTE | 2021-05-27 19:30 | NUR ---
OPEN NOTE PATIENT IS ASLEEP IN BED RESPONSIVE TO NAME BREATHING ROOM AIR NO SIGNS OF PAIN OR DISTRESS. IV SITE PATENT INTACT. BED IN LOW POSITION AND CALL LIGHT IN REACH.
[2021-05-27] MEDS: TAMSULOSIN HCL 0.4 MG CAP PO SCH (22:10)
[2021-05-27] MEDS: DIVALPROEX SODIUM 250 MG TABLET(DEPAKOTE) PO SCH (22:12)
--- NOTE | 2021-05-28 | NUR ---
PATIENT ASLEEP NO SIGNS OF PAIN OR DISTRESS. BED LOW CALL LIGHT IN REACH.
[2021-05-28 00:45] VITALS: BP_SYST 100
[2021-05-28] MEDS: D5/0.45 NS 1,000 ML IV SCH (02:45)
--- NOTE | 2021-05-28 04:00 | NUR ---
PATIENT ASLEEP REFUSING ALL CARE AND TREATMENTS. BED IS LOW AND CALL LIGHT WITHIN REACH.
--- NOTE | 2021-05-28 07:38 | NUR ---
CLOSING NOTE PATIENT ASLEEP COOPERATIVE. IV PATENT INTACT. BED IS LOW AND CALL LIGHT IN REACH. WILL ENDORSE TO NEXT NURSE POSSIBLE ENDOSCOPY MD HAS NOT DISCUSSED CONSENTS TREATMENT WITH PT/ FAMILY. PATIENT REFUSED IV FLUID AND TREATMENT IN MY SHIFT.
--- NOTE | 2021-05-28 07:40 | NUR ---
Opening note Received report from night nurse. Patient is alert and oriented x4. On room air and tolerating well with no signs of shortness of breath noted. IV is patent, saline locked as ordered. Bed locked and in lowest position. Call light within reach. Bed alarm on. Will continue to monitor.
[2021-05-28 08:00] VITALS: BP_SYST 123
[2021-05-28] MEDS: BALSAM PERU/CASTOR OIL 60 GM OINT...G. TP SCH ×2 (09:00→09:23)
[2021-05-28] MEDS: PANTOPRAZOLE SODIUM 40 MG TAB PO SCH (09:18)
[2021-05-28] MEDS: ASPIRIN 81 MG TAB.CHEW PO SCH (09:18)
[2021-05-28] MEDS: FERROUS SULFATE 325 MG TABLET.DR PO SCH (09:19)
[2021-05-28] MEDS: CARVEDILOL 6.25 MG TABLET (COREG) PO SCH ×2 (09:19→23:21)
[2021-05-28] MEDS: ASCORBIC ACID 500 MG TABLET PO SCH ×2 (09:19→23:20)
[2021-05-28] MEDS: DILTIAZEM HCL 120 MG CAP.SR.24H PO SCH (09:19)
[2021-05-28] MEDS: DOCUSATE SODIUM 100 MG CAPSULE PO SCH (09:19)
[2021-05-28] MEDS: CIPROFLOXACIN HCL 500 MG TABLET PO SCH ×2 (09:19→23:21)
[2021-05-28] MEDS: methIMAzole 5 MG TABLET PO SCH (09:20)
[2021-05-28] MEDS: SILVER SULFADIAZINE 1%, 25 GM TOPICAL CREAM (SSD) TP SCH (09:23)
[2021-05-28] MEDS: NYSTATIN/TRIAMCIN 15 GM TOPICAL CREAM TP SCH ×2 (09:23→22:00)
[2021-05-28] MEDS: AMOXICILLIN/CLAVULANATE POTASSIUM 875 MG TABLET PO SCH ×2 (10:12→21:00)
--- NOTE | 2021-05-28 10:30 | NUR ---
Dr. Kadeem sidhu MD to see patient. Received orders for right above the knee amputation tomorrow. Patient consented and signed consents. Will monitor.
[2021-05-28 10:37] LABS: BASOPHILS # (AUTO) 0.1 K/uL (0.0-0.2); BASOPHILS % (AUTO) 0.9 % (0.0-2.0); EOSINOPHILS # (AUTO) 0.4 K/uL (0.0-0.4); EOSINOPHILS % (AUTO) 5.4 % (0.0-4.0); HEMATOCRIT 31.2 % (36-54); HEMOGLOBIN 10.5 g/dL (14.0-18.0); LYMPHOCYTES # (AUTO) 1.3 K/uL (1.0-5.5); LYMPHOCYTES % (AUTO) 17.1 % (20.5-51.5); MEAN CORPUSCULAR HEMOGLOBIN 30 pg (27-31); MEAN CORPUSCULAR HGB CONC 34 % (32-36); MEAN CORPUSCULAR VOLUME 90 fL (79.0-98.0); MONOCYTES # (AUTO) 0.7 K/uL (0.0-1.0); MONOCYTES % (AUTO) 8.6 % (1.7-9.3); NEUTROPHILS # (AUTO) 5.3 K/uL (1.8-7.7); PLATELET COUNT (AUTO) 446 K/uL (130-430); RED BLOOD CELL COUNT(AUTO) 3.48 MIL/uL (4.2-6.2); RED CELL DISTRIBUTION WIDTH 17.2 % (9.0-15.0); WHITE BLOOD COUNT (AUTO) 7.8 K/uL (4.8-10.8)
[2021-05-28 12:02] VITALS: BP_SYST 121
--- NOTE | 2021-05-28 13:30 | NUR ---
WOUND CARE WOUND CARE DONE OF SACRAL AND BUTTOCKS WOUNDS. PATIENT REFUSED ASSESSMENT AND WOUND CARE OF LOWER EXTREMITY. PATIENT ALSO REFUSES TO TURN EVERY 2 HOURS. EDUCATED ON IMPORTANCE OF TURNING TO ENCOURAGE WOUND HEALING. WILL MONITOR.
--- NOTE | 2021-05-28 15:23 | NUR ---
RN note Patient connected to IV fluids as ordered. Infusing D51/2 NS at 50ml/hr. Patient is sleeping at this time. No distress noted. Will monitor.
[2021-05-28 16:01] VITALS: BP_SYST 123
--- NOTE | 2021-05-28 18:33 | NUR ---
Closing note Patient is sleeping in bed. On room air and tolerating well with no signs of shortness of breath noted. IV is patent, infusing fluids as ordered. Bed locked and in lowest position. Call light within reach. Bed alarm on. Will endorse to night nurse.
--- NOTE | 2021-05-28 19:15 | NUR ---
OPENING NOTES Patient resting in bed - no s/s pain or distress noted. Respirations even and unlabored - head of bed elevated. IV site patent - no s/s redness, infection, or infiltration. Bed locked and in lowest position. Call light within reach.
[2021-05-28 20:00] VITALS: BP_SYST 138
--- NOTE | 2021-05-28 22:30 | NUR ---
PATIENT STATES THEY WANT MEDICATION LATER AT THIS TIME Patient wanted to be fed before medication, but then states they want medication "later." Patient asked if they would like it in half an hour (2300) Patient states "okay." Will return to pt room at approximately 2300.
[2021-05-28] MEDS: DIVALPROEX SODIUM 250 MG TABLET(DEPAKOTE) PO SCH (23:20)
[2021-05-28] MEDS: TAMSULOSIN HCL 0.4 MG CAP PO SCH (23:20)
[2021-05-29] VITALS: BP_SYST 128
--- NOTE | 2021-05-29 | NUR ---
ROUNDING NOTES Patient resting in bed - no s/s pain or distress noted. Respirations even and unlabored - head of bed elevated. IV site patent - no s/s redness, infection, or infiltration. Skin warm and dry no s/s hypoglycemia. Bed locked and in lowest position. call light within reach
[2021-05-29] MEDS: INSULIN REGULAR, HUMAN 100 UNITS/ML, 10 ML VIAL (humuLIN R) SUBCUT PRN ×2 (00:07→07:07)
[2021-05-29] MEDS: HYDROcodone/ACETAMIN 10-325 MG TAB PO PRN (01:41)
[2021-05-29 06:32] LABS: BASOPHILS # (AUTO) 0.1 K/uL (0.0-0.2); BASOPHILS % (AUTO) 0.7 % (0.0-2.0); EOSINOPHILS # (AUTO) 0.4 K/uL (0.0-0.4); EOSINOPHILS % (AUTO) 4.5 % (0.0-4.0); HEMATOCRIT 26.6 % (36-54); HEMOGLOBIN 9.2 g/dL (14.0-18.0); LYMPHOCYTES # (AUTO) 1.5 K/uL (1.0-5.5); MEAN CORPUSCULAR HEMOGLOBIN 31 pg (27-31); MEAN CORPUSCULAR HGB CONC 35 % (32-36); MEAN CORPUSCULAR VOLUME 89 fL (79.0-98.0); MONOCYTES # (AUTO) 0.6 K/uL (0.0-1.0); MONOCYTES % (AUTO) 7.9 % (1.7-9.3); NEUTROPHILS # (AUTO) 5.4 K/uL (1.8-7.7); NEUTROPHILS % (AUTO) 67.9 % (40.0-70.0); PLATELET COUNT (AUTO) 394 K/uL (130-430); RED BLOOD CELL COUNT(AUTO) 2.98 MIL/uL (4.2-6.2); RED CELL DISTRIBUTION WIDTH 17.4 % (9.0-15.0); WHITE BLOOD COUNT (AUTO) 7.9 K/uL (4.8-10.8)
[2021-05-29 06:37] LABS: CALCIUM 7.8 mg/dL (8.4-11.0); CREATININE 0.46 mg/dL (0.55-1.30); POTASSIUM 3.3 mmol/L (3.5-5.1)
[2021-05-29] MEDS: D5/0.45 NS 1,000 ML IV SCH ×2 (06:58→18:45)
--- NOTE | 2021-05-29 07:40 | NUR ---
Opening note Received report from night nurse. Patient is alert and oriented x4. On room air and tolerating well with no signs of shortness of breath noted. IV is patent, infusing fluids as ordered. Bed locked and in lowest position. Call light within reach. Bed alarm on. Will continue to monitor.
[2021-05-29 08:00] VITALS: BP_SYST 147
[2021-05-29] MEDS: ASCORBIC ACID 500 MG TABLET PO SCH ×2 (09:00→21:57)
[2021-05-29] MEDS: DILTIAZEM HCL 120 MG CAP.SR.24H PO SCH (09:00)
[2021-05-29] MEDS: ASPIRIN 81 MG TAB.CHEW PO SCH (09:00)
[2021-05-29] MEDS: AMOXICILLIN/CLAVULANATE POTASSIUM 875 MG TABLET PO SCH ×2 (09:00→21:00)
[2021-05-29] MEDS: CARVEDILOL 6.25 MG TABLET (COREG) PO SCH ×2 (09:00→21:00)
[2021-05-29] MEDS: BALSAM PERU/CASTOR OIL 60 GM OINT...G. TP SCH ×2 (09:00→09:52)
[2021-05-29] MEDS: FERROUS SULFATE 325 MG TABLET.DR PO SCH (09:00)
[2021-05-29] MEDS: methIMAzole 5 MG TABLET PO SCH (09:00)
[2021-05-29] MEDS: DOCUSATE SODIUM 100 MG CAPSULE PO SCH (09:00)
[2021-05-29] MEDS: PANTOPRAZOLE SODIUM 40 MG TAB PO SCH (09:00)
--- NOTE | 2021-05-29 09:00 | NUR ---
Spoke with Dr. Quan. Received orders for 1 unit PRBCs on hold for surgery with type and screen. Noted and carried out.
[2021-05-29] MEDS: SILVER SULFADIAZINE 1%, 25 GM TOPICAL CREAM (SSD) TP SCH (09:52)
[2021-05-29] MEDS: NYSTATIN/TRIAMCIN 15 GM TOPICAL CREAM TP SCH ×2 (09:52→22:04)
[2021-05-29] MEDS: CIPROFLOXACIN HCL 500 MG TABLET PO SCH ×2 (09:53→21:57)
--- NOTE | 2021-05-29 12:19 | NUR ---
Wound care Wound care done of sacral and buttocks wounds. Pictures taken. Patient refused wound care and assessment of stump wounds. Dry scabs noted on penis but patient refused pictures. Patient refusing to be turned Q 2 hours. Will monitor
[2021-05-29 12:49] VITALS: BP_SYST 140
[2021-05-29 16:49] VITALS: BP_SYST 137
--- NOTE | 2021-05-29 17:15 | NUR ---
RN NOTE PATIENT IS RESTING IN BED. CLEANED AND REPOSITIONED. STOOL SAMPLE TAKEN TO LAB. AWAITING SURGERY. WILL MONITOR.
[2021-05-29 21:55] VITALS: BP_SYST 100
[2021-05-29] MEDS: TAMSULOSIN HCL 0.4 MG CAP PO SCH (21:57)
[2021-05-29] MEDS: DIVALPROEX SODIUM 250 MG TABLET(DEPAKOTE) PO SCH (21:57)
--- NOTE | 2021-05-29 21:57 | NUR ---
MED PASS PATIENT DUE MEDICATIONS GIVEN. VITAL SIGNS STABLE. PATIENT REFUSING REPOSITIONING AND WOUND CARE ON RT STUMP.
[2021-05-30] VITALS (9 sets, daily range): BP systolic 104–140
--- NOTE | 2021-05-30 00:38 | NUR ---
BLD SUGAR PATIENT ROUTINE FINGERSTICK SUGAR 111.
--- NOTE | 2021-05-30 02:00 | NUR ---
ROUNDS PATIENT RESTING IN BED. BREATHING UNLABORED ON ROOM AIR.
--- NOTE | 2021-05-30 04:45 | NUR ---
AM CARE PATIENT HAD LARGE BM. AM CARE DONE. ALL LINENS CHANGED. SACRAL WOUND DRESSING CHANGED. PATIENT REFUSING RT BKA WOUND DRESSING TO BE CHANGE.
[2021-05-30] MEDS: D5/0.45 NS 1,000 ML IV SCH (06:11)
--- NOTE | 2021-05-30 06:42 | NUR ---
CLOSING NOTES PATIENT KEPT NPO. IVF INFUSING WITH IV LINE INTACT AND PATENT. PATIENT NEEDS ATTENDED. BED IN LOWEST LOCKED POSITION WITH ALARM ON. CALL LIGHT WITHIN REACH.
--- NOTE | 2021-05-30 08:00 | NUR ---
Opening note Received report from night nurse. Patient is alert and oriented x4. On room air and tolerating well with no signs of shortness of breath noted. IV is patent, infusing fluids as ordered. Bed locked and in lowest position. Call light within reach. Bed alarm on. NPo for surgery later today. Morning meds held. Will continue to monitor.
[2021-05-30] MEDS: BALSAM PERU/CASTOR OIL 60 GM OINT...G. TP SCH ×2 (08:09→08:11)
[2021-05-30] MEDS: SILVER SULFADIAZINE 1%, 25 GM TOPICAL CREAM (SSD) TP SCH (08:09)
[2021-05-30] MEDS: CARVEDILOL 6.25 MG TABLET (COREG) PO SCH (08:10)
[2021-05-30] MEDS: AMOXICILLIN/CLAVULANATE POTASSIUM 875 MG TABLET PO SCH (08:10)
[2021-05-30] MEDS: NYSTATIN/TRIAMCIN 15 GM TOPICAL CREAM TP SCH (08:10)
[2021-05-30] MEDS: DILTIAZEM HCL 120 MG CAP.SR.24H PO SCH (08:10)
[2021-05-30] MEDS: ASPIRIN 81 MG TAB.CHEW PO SCH (08:10)
[2021-05-30] MEDS: FERROUS SULFATE 325 MG TABLET.DR PO SCH (08:10)
[2021-05-30] MEDS: methIMAzole 5 MG TABLET PO SCH (08:10)
[2021-05-30] MEDS: DOCUSATE SODIUM 100 MG CAPSULE PO SCH (08:10)
[2021-05-30] MEDS: PANTOPRAZOLE SODIUM 40 MG TAB PO SCH (08:10)
[2021-05-30] MEDS: ASCORBIC ACID 500 MG TABLET PO SCH (08:11)
[2021-05-30] MEDS: CIPROFLOXACIN HCL 500 MG TABLET PO SCH (09:37)
--- NOTE | 2021-05-30 11:49 | NUR ---
Spoke to OR. Surgery scheduled for 1830 today. Patient in stable condition. Sleeping. Blood sugar 97. No insulin given. Patient still NPO. Will monitor.
--- NOTE | 2021-05-30 13:55 | NUR ---
Discharge Planning: Pt can go to [facility] , address: [address], [place] [address], tel [phone] . Please call [facility]/admitting, cell # [phone] for bed assignment upon discharge.
--- NOTE | 2021-05-30 15:00 | NUR ---
RN NOTE Patient cleaned and repositioned. Had large BM. Wound care done of sacral and buttocks wounds. Patient refused wound care of bilateral lower extremity wounds stating "do not touch my legs". Will monitor.
--- NOTE | 2021-05-30 18:15 | NUR ---
RN note Patient is resting at this time. Blood sugar 96. Patient is still NPO for surgery tonight. Called OR and said it will be later tonight. Will monitor.
--- NOTE | 2021-05-30 18:41 | NUR ---
Closing note Patient is sleeping in bed. On room air and tolerating well with no signs of shortness of breath noted. IV is patent, infusing fluids as ordered. Bed locked and in lowest position. Call light within reach. Bed alarm on. Patient is still NPO for surgery scheduled for later tonight. Will endorse to night nurse.
--- NOTE | 2021-05-30 19:50 | NUR ---
OPENING NOTE PT LAYING IN BED WITH RESPIRATIONS EVEN AND UNLABORED ON RA. NO SIGNS OF DISTRESS NOTED. LFA 20G IV INTACT AND RUNNING IVF. BED IN LOW AND LOCKED POSITION. SAFETY/FALL PRECAUTIONS IN PLACE. WILL CONTINUE TO MONITOR.
--- NOTE | 2021-05-30 20:20 | NUR ---
PT TRANSFERRED TO SURGERY. VITALS STABLE. CONSENTS SIGNED AND WITNESSED.
[2021-05-30] MEDS ORDERED: ACETAMINOPHEN I.V. 1000 MG 100 ML IV ONE (21:35)
[2021-05-30] MEDS ORDERED: LR 1,000 ML IV SCH (21:45)
[2021-05-30] MEDS ORDERED: NALOXONE HCL 0.4 MG/ML AMP (NARCAN) IVP PRN (21:45)
[2021-05-30] MEDS ORDERED: DILTIAZEM HCL 25 MG/5 ML VIAL IVP PRN (21:45)
[2021-05-30] MEDS ORDERED: ePHEDrine sulfate 50 MG/ML VIAL IVP PRN (21:45)
[2021-05-30] MEDS ORDERED: HYDROmorphone 2 MG/ML VIAL IVP PRN ×2 (21:45)
[2021-05-30] MEDS ORDERED: MEPERIDINE HCL/PF 25 MG/ML DISP.SYRIN IVP PRN (21:45)
[2021-05-30] MEDS ORDERED: MIDAZOLAM HCL 5 MG/5 ML VIAL IVP PRN (21:45)
[2021-05-30] MEDS ORDERED: HYDROmorphone 1 MG/ML INJ. CARTRIDGE IVP PRN (21:45)
--- NOTE | 2021-05-30 23:00 | NUR ---
PT RETURNED FROM SURGERY. VITALS STABLE. RECEIVED PT FROM LOERA, LICENSED PERSONAL.
--- NOTE | 2021-05-30 23:01 | NUR ---
VITALS TAKEN Q15 FOR 1ST HOUR, Q30 FOR 2ND HOUR AND ONCE IN THIRD HOUR. VS STABLE
[2021-05-31] VITALS (8 sets, daily range): BP systolic 106–125
[2021-05-31] MEDS: ASCORBIC ACID 500 MG TABLET PO SCH ×3 (00:25→21:00)
[2021-05-31] MEDS: CARVEDILOL 6.25 MG TABLET (COREG) PO SCH ×3 (00:25→21:00)
[2021-05-31] MEDS: TAMSULOSIN HCL 0.4 MG CAP PO SCH ×2 (00:25→21:00)
[2021-05-31] MEDS: CIPROFLOXACIN HCL 500 MG TABLET PO SCH ×3 (00:25→21:56)
[2021-05-31] MEDS: DIVALPROEX SODIUM 250 MG TABLET(DEPAKOTE) PO SCH ×2 (00:26→21:00)
[2021-05-31] MEDS: NYSTATIN/TRIAMCIN 15 GM TOPICAL CREAM TP SCH ×3 (00:27→21:56)
[2021-05-31] MEDS: INSULIN REGULAR, HUMAN 100 UNITS/ML, 10 ML VIAL (humuLIN R) SUBCUT PRN ×3 (00:42→16:57)
[2021-05-31] MEDS ORDERED: AMOXICILLIN/CLAVULANATE POTASSIUM 875 MG TABLET ONE (01:04)
[2021-05-31] MEDS: AMOXICILLIN/CLAVULANATE POTASSIUM 875 MG TABLET PO SCH ×3 (01:28→21:00)
--- NOTE | 2021-05-31 06:16 | NUR ---
PT REFUSED GLUCOSE CHECK PT STATES, "IM TIRED OF BEING POKED. I REFUSE. TELL THEM I SAID NO." Addendum: 05/31/21 at 0618 by Tari Ochoa RN PT EDUCATED ON IMPORTANCE OF GLUCOSE CHECK. PT CONTINUES TO REFUSE.
--- NOTE | 2021-05-31 07:30 | NUR ---
OPENING NOTES: RECEIVED PATIENT FROM SUPERVISOR CORE DRILLING NURSE. PATIENT IS AWAKE LAYING DOWN IN BED. TOLERATED ON ROOM AIR WITH NO DISTRESS NOTED. IV LINE PATENT AND INTACT. PATIENT STABLE AT THIS TIME. SAFETY, FALL, AND ASPIRATION PRECAUTIONS ARE IN PLACE. BED LOCKED IN LOWEST POSITION AND CALL LIGHT IN REACH. WILL CONTINUE TO MONITOR PATIENT FOR ANY CHANGES.
[2021-05-31] MEDS: DILTIAZEM HCL 120 MG CAP.SR.24H PO SCH (09:00)
[2021-05-31] MEDS: DOCUSATE SODIUM 100 MG CAPSULE PO SCH (09:00)
[2021-05-31] MEDS: SILVER SULFADIAZINE 1%, 25 GM TOPICAL CREAM (SSD) TP SCH (09:00)
[2021-05-31] MEDS: FERROUS SULFATE 325 MG TABLET.DR PO SCH (09:00)
[2021-05-31] MEDS: PANTOPRAZOLE SODIUM 40 MG TAB PO SCH (09:00)
[2021-05-31] MEDS: ASPIRIN 81 MG TAB.CHEW PO SCH (09:00)
[2021-05-31] MEDS: BALSAM PERU/CASTOR OIL 60 GM OINT...G. TP SCH ×2 (09:00)
[2021-05-31] MEDS: methIMAzole 5 MG TABLET PO SCH (09:00)
--- NOTE | 2021-05-31 09:30 | NUR ---
PATIENT REFUSED ALL MORNING MEDICATION. AWARE.
--- NOTE | 2021-05-31 10:05 | NUR ---
VINICIUS PAGED PAGED MASOUD POTTER AT [phone] SPOKE WITH PANCHO. Addendum: 05/31/21 at 1006 by Jorge Luis Menendez [place]/ MASOUD SONI AT [phone] SPOKE WITH PANCHO.
[2021-05-31] MEDS: D5/0.45 NS 1,000 ML IV SCH (10:45)
--- NOTE | 2021-05-31 10:46 | NUR ---
PATIENT IS POSITIVE FOR MRSA. MD IS AWARE.
--- NOTE | 2021-05-31 10:47 | NUR ---
DR. OSULLIVAN ORDERED DIABETIC DIET FOR PATIENT. NOTED AND CARRIED OUT.
--- NOTE | 2021-05-31 18:45 | NUR ---
CLOSING NOTES: PATIENT IS AWAKE LAYING DOWN IN BED. TOLERATED OXYGEN ON ROOM AIR WITH NO DISTRESS NOTED. IV LINE PATENT AND INTACT. PATIENT STABLE AT THIS TIME. SAFETY, FALL, AND ASPIRATION PRECAUTIONS REMAINED IN PLACE. BED LOCKED IN LOWEST POSITION AND CALL LIGHT IN REACH. WILL ENDORSE PATIENT CARE TO ONCOMING SHIPPING CLERK CRATING NURSE.
--- NOTE | 2021-05-31 19:15 | NUR ---
change of shift.pt.presents isolation status contact;mrsa+nares.pt.presents iv access LOCATion LT.ForeArM INtACT IV FlUIDS INFusiNG.NO C/O PaIN,NaUsEa.PT.UTILIZiNG THE URINAL W/in ACCesS OF THe PT.call light w/in access of the pt/pt.presents bilateral bka.
--- NOTE | 2021-05-31 20:00 | NUR ---
pt.assessed.v/s assessed values wnl.no c/o pain,nausea.urinal attended to placed w/in access of the pt.iv access intact.i have feed the pt.dinner tray. pt.repositioned.general status stable.respiratory status stable@room air.call light placed w/in access of the pt.
[2021-05-31] MEDS: MUPIROCIN 2% TOPICAL OINTMENT 22 GM NS SCH (21:00)
--- NOTE | 2021-05-31 21:00 | NUR ---
2100pmedications.pt.has refused the administration of all 2100pmedications.no c/o pain,nausea.pt. repositioned.no requests posited@this hour.urinal/call light w/in access of the pt.
--- NOTE | 2021-05-31 22:00 | NUR ---
pt.assessed.pt.presents quiescent affect somnolent.per flacc pain mgx pt.absent facial grimaces/body posturing.urinal w/in access of the pt.pt.repositioned.call light w/in access of the pt.
[2021-06-01] VITALS: BP_SYST 103
--- NOTE | 2021-06-01 | NUR ---
pt.assessed.v/s assessed values wnl.blood glucose assssed value 211mg/dl.pt.refused insulin per sliding scale.pt.repositioned.call light placed w/in access of the pt.
[2021-06-01] MEDS: INSULIN REGULAR, HUMAN 100 UNITS/ML, 10 ML VIAL (humuLIN R) SUBCUT PRN ×3 (00:47→12:04)
--- NOTE | 2021-06-01 02:00 | NUR ---
pt.assessed.pt.presents quiescent affect.per flacc pain mgx pt.absent facial grimaces/body posturing.urinal w/in access of the pt./pt.repositioned.call light placed w/in access of the pt.
--- NOTE | 2021-06-01 04:00 | NUR ---
pt.assessed.pt.presents quiescent affect somnolent.per flacc pain mgx pt.absent facial grimaces/body posturing.iv access intact iv fluids infusing.pt.repositioned.call light placed w/in access of the pt.
[2021-06-01] MEDS: D5/0.45 NS 1,000 ML IV SCH ×2 (05:02→15:24)
--- NOTE | 2021-06-01 06:14 | NUR ---
pt.assessed.blood glucose assessed value;180mg/dl.pt.refused insulin administration per sliding scale.no c/o pain,nausea. no requests posited@this hour.iv access intact iv fluids infusing.urinal placed w/in access of the pt.pt.refused wound care. call light placed w/in access of the pt.
[2021-06-01 08:00] VITALS: BP_SYST 135
--- NOTE | 2021-06-01 08:00 | NUR ---
OPENING NOTE PATIENT FOUND IN BED SLEEPING, WITH NO COMPLAINTS OF PAIN OR DISCOMFORT. BREAKFAST TRAY WAS DELIVERED AND PATIENT FED,VS OBTAINED. NO SIGNS OF DISTRESS NOTED. BED IN LOWEST POSITION, LOCKED, TWO RAILS UP AND CALL LIGHT IN REACH. WILL CONTINUE TO MONITOR.
[2021-06-01] MEDS: DILTIAZEM HCL 120 MG CAP.SR.24H PO SCH (09:29)
[2021-06-01] MEDS: PANTOPRAZOLE SODIUM 40 MG TAB PO SCH (09:29)
[2021-06-01] MEDS: ASCORBIC ACID 500 MG TABLET PO SCH ×2 (09:29→21:00)
[2021-06-01] MEDS: FERROUS SULFATE 325 MG TABLET.DR PO SCH (09:29)
[2021-06-01] MEDS: DOCUSATE SODIUM 100 MG CAPSULE PO SCH (09:29)
[2021-06-01] MEDS: ASPIRIN 81 MG TAB.CHEW PO SCH (09:29)
[2021-06-01] MEDS: methIMAzole 5 MG TABLET PO SCH (09:30)
[2021-06-01] MEDS: CARVEDILOL 6.25 MG TABLET (COREG) PO SCH ×2 (09:30→22:55)
[2021-06-01] MEDS: MUPIROCIN 2% TOPICAL OINTMENT 22 GM NS SCH ×2 (09:31→21:00)
[2021-06-01] MEDS: BALSAM PERU/CASTOR OIL 60 GM OINT...G. TP SCH ×2 (09:38→09:42)
[2021-06-01] MEDS: SILVER SULFADIAZINE 1%, 25 GM TOPICAL CREAM (SSD) TP SCH (09:38)
[2021-06-01] MEDS: AMOXICILLIN/CLAVULANATE POTASSIUM 875 MG TABLET PO SCH ×2 (09:55→21:00)
[2021-06-01] MEDS: CIPROFLOXACIN HCL 500 MG TABLET PO SCH ×2 (09:55→22:56)
[2021-06-01] MEDS: NYSTATIN/TRIAMCIN 15 GM TOPICAL CREAM TP SCH ×2 (09:57→22:00)
--- NOTE | 2021-06-01 10:13 | NUR ---
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 DONALD RN
--- NOTE | 2021-06-01 10:26 | NUR ---
Case mgt: I called main#[phone] at [facility] and s/w Yandy, who indicates Wayne is the casino operations supervisor for bed assignments but he usually doesn't work weekends-I called his cell#[phone] again and left another message to call me. DONALD PEREZ
[2021-06-01 12:00] VITALS: BP_SYST 114
--- NOTE | 2021-06-01 14:12 | NUR ---
Case mgt: Wayne from [facility] called me back-He has an isolation room available for pt when pt is stable for dc, just call him for the room# at [phone]-- RN
[2021-06-01 16:00] VITALS: BP_SYST 124
--- NOTE | 2021-06-01 17:25 | NUR ---
Nursing note Found patient complaining of feeling wet. IV was out of place. IV fluids were stopped, IV was discontinued. No redness, pain or swelling to IV site. Patient refused another IV to be started.
--- NOTE | 2021-06-01 19:37 | NUR ---
closing note Patient is resting, with no signs of distress noted. Call light in reach, bed locked and lowest position and two rails are up. fall, safety and aspiration precautions in place. Food is at bedside, patient will need feeder. Will endorse to community nutrition educator.
[2021-06-01 20:00] VITALS: BP_SYST 123
--- NOTE | 2021-06-01 20:00 | NUR ---
Patient REFUSING IV Re insertion again Will UPDATE MD DR Padilla .
[2021-06-01] MEDS: TAMSULOSIN HCL 0.4 MG CAP PO SCH (22:50)
[2021-06-01] MEDS: DIVALPROEX SODIUM 250 MG TABLET(DEPAKOTE) PO SCH (22:54)
--- NOTE | 2021-06-01 23:00 | NUR ---
[facility] Patient FEEDER assist 80 % consumed did encourage patient tolerate .
[2021-06-01] MEDS: HYDROcodone/ACETAMIN 10-325 MG TAB PO PRN (23:24)
--- NOTE | 2021-06-01 23:48 | NUR ---
NORCO 10/325 MG po given for GENERAL PAIN continue to monitor .
[2021-06-02 00:16] VITALS: BP_SYST 131
--- NOTE | 2021-06-02 02:11 | NUR ---
REFUSING IV Re insertion .
--- NOTE | 2021-06-02 05:14 | NUR ---
Hourly Rounding patient Resting chest movement symmetrical verbally Responsive encourage position change Refused .
--- NOTE | 2021-06-02 05:45 | NUR ---
REFUSE , patient Refuse blood sugar this hour is verbally Responsive , & yelling out .
[2021-06-02 08:00] VITALS: BP_SYST 135
--- NOTE | 2021-06-02 08:00 | NUR ---
Opening note PATIENT FOUND IN BED SLEEPING, WITH COMPLAINTS OF PAIN TO RIGHT LOWER LEG, PRN NORCO GIVEN. BREAKFAST TRAY WAS DELIVERED AND PATIENT FED,VS OBTAINED. NO SIGNS OF DISTRESS NOTED. BED IN LOWEST POSITION, LOCKED, TWO RAILS UP AND CALL LIGHT IN REACH. WILL CONTINUE TO MONITOR.
[2021-06-02 08:22] LABS: BASOPHILS # (AUTO) 0.1 K/uL (0.0-0.2); BASOPHILS % (AUTO) 0.9 % (0.0-2.0); EOSINOPHILS # (AUTO) 0.5 K/uL (0.0-0.4); EOSINOPHILS % (AUTO) 7.6 % (0.0-4.0); HEMATOCRIT 25.3 % (36-54); HEMOGLOBIN 8.8 g/dL (14.0-18.0); LYMPHOCYTES # (AUTO) 1.5 K/uL (1.0-5.5); LYMPHOCYTES % (AUTO) 21.1 % (20.5-51.5); MEAN CORPUSCULAR HEMOGLOBIN 31 pg (27-31); MEAN CORPUSCULAR HGB CONC 35 % (32-36); MEAN CORPUSCULAR VOLUME 90 fL (79.0-98.0); MONOCYTES # (AUTO) 0.5 K/uL (0.0-1.0); MONOCYTES % (AUTO) 6.7 % (1.7-9.3); NEUTROPHILS # (AUTO) 4.5 K/uL (1.8-7.7); NEUTROPHILS % (AUTO) 63.7 % (40.0-70.0); PLATELET COUNT (AUTO) 412 K/uL (130-430); RED BLOOD CELL COUNT(AUTO) 2.83 MIL/uL (4.2-6.2)
[2021-06-02 08:54] LABS: CALCIUM 7.5 mg/dL (8.4-11.0); CREATININE 0.44 mg/dL (0.55-1.30); POTASSIUM 3.3 mmol/L (3.5-5.1)
[2021-06-02] MEDS: AMOXICILLIN/CLAVULANATE POTASSIUM 875 MG TABLET PO SCH (09:40)
[2021-06-02] MEDS: ASCORBIC ACID 500 MG TABLET PO SCH ×2 (09:40→23:03)
[2021-06-02] MEDS: PANTOPRAZOLE SODIUM 40 MG TAB PO SCH (09:40)
[2021-06-02] MEDS: CARVEDILOL 6.25 MG TABLET (COREG) PO SCH ×2 (09:41→23:02)
[2021-06-02] MEDS: FERROUS SULFATE 325 MG TABLET.DR PO SCH (09:41)
[2021-06-02] MEDS: HYDROcodone/ACETAMIN 10-325 MG TAB PO PRN (09:41)
[2021-06-02] MEDS: DOCUSATE SODIUM 100 MG CAPSULE PO SCH (09:42)
[2021-06-02] MEDS: ASPIRIN 81 MG TAB.CHEW PO SCH (09:42)
[2021-06-02] MEDS: CIPROFLOXACIN HCL 500 MG TABLET PO SCH (09:42)
[2021-06-02] MEDS: DILTIAZEM HCL 120 MG CAP.SR.24H PO SCH (09:42)
[2021-06-02] MEDS: methIMAzole 5 MG TABLET PO SCH (09:42)
[2021-06-02] MEDS: SILVER SULFADIAZINE 1%, 25 GM TOPICAL CREAM (SSD) TP SCH (09:43)
[2021-06-02] MEDS: BALSAM PERU/CASTOR OIL 60 GM OINT...G. TP SCH ×2 (09:43→09:51)
[2021-06-02] MEDS: NYSTATIN/TRIAMCIN 15 GM TOPICAL CREAM TP SCH ×2 (09:44→22:00)
[2021-06-02] MEDS: MUPIROCIN 2% TOPICAL OINTMENT 22 GM NS SCH ×2 (09:44→23:03)
[2021-06-02 12:04] VITALS: BP_SYST 131
--- NOTE | 2021-06-02 13:00 | NUR ---
NURSING NOTE WENT IN ROOM TO PROVIDE WOUND CARE TO PATIENT , PATIENT REFUSED TO BE TURNED AND ASKED TO BE LEFT ALONE. PATIENT WAS ALSO ASKED IF AN IV CAN BE STARTED, PATIENT REFUSED IV, MD AWARE.
--- NOTE | 2021-06-02 14:10 | NUR ---
Nutrition F/U RD reviewed pt's current EMR including diet Hx, physician notes, nursing notes, pertinent labs/meds/procedures, care trends, and care activity. Short note d/t high pt load. Current Diet Order/Nutrition Support: NPO x4 days & CCHO x2 days (2 active, separate diet orders) RD rounded to MST and spoke w/ pt's NETWORK DEVELOPER in [facility] the [facility] who reported that pt has been eating well, but may benefit from chopped foods d/t difficulty sitting up to eat. He also reported that pt is a feeder. RD noted that previously ordered supplements are no longer in place, but are still necessary to promote wound healing. Per EMR review, PO intakes have been negligible w/ an average of 18% x12 meals since last RD F/U 05/27. Pt is at increased risk for malnutrition. Recommend CCHO, mechanical soft, chopped diet w/ Huan BID and Nepro BID. Pt is at high nutritional risk; RD to F/U within 2-3 days.
[2021-06-02 16:17] VITALS: BP_SYST 120
--- NOTE | 2021-06-02 19:29 | NUR ---
CLOSING NOTE Patient is resting, with no signs of distress noted. Call light in reach, bed locked and lowest position and two rails are up. fall, safety and aspiration precautions in place. Food is at bedside, patient will need feeder. Will endorse to carpenter/labor.
[2021-06-02 20:00] VITALS: BP_SYST 135
--- NOTE | 2021-06-02 21:05 | NUR ---
ASSIST Patient with ordered po diet CCHO HOB kept elevated tolerated no DIABETIC Reaction noted .
[2021-06-02] MEDS: D5/0.45 NS 1,000 ML IV SCH (22:45)
[2021-06-02] MEDS: DIVALPROEX SODIUM 250 MG TABLET(DEPAKOTE) PO SCH (23:02)
[2021-06-02] MEDS: TAMSULOSIN HCL 0.4 MG CAP PO SCH (23:03)
[2021-06-03 00:34] VITALS: BP_SYST 122
--- NOTE | 2021-06-03 02:08 | NUR ---
Hourly Rounding patient Resting is verbally Responsive Respirations Regular also unlabored .
--- NOTE | 2021-06-03 06:51 | NUR ---
Patient Refuse blood sugar this AM .
[2021-06-03 08:00] VITALS: BP_SYST 126
--- NOTE | 2021-06-03 08:00 | NUR ---
A/Ox4, on room air. POC is explained. Call light in place, bed locked at the lowest position, will continue to monitor.
[2021-06-03] MEDS: BALSAM PERU/CASTOR OIL 60 GM OINT...G. TP SCH ×2 (09:00→09:10)
[2021-06-03] MEDS: PANTOPRAZOLE SODIUM 40 MG TAB PO SCH (09:07)
[2021-06-03] MEDS: ASPIRIN 81 MG TAB.CHEW PO SCH (09:07)
[2021-06-03] MEDS: ASCORBIC ACID 500 MG TABLET PO SCH (09:07)
[2021-06-03] MEDS: CARVEDILOL 6.25 MG TABLET (COREG) PO SCH (09:08)
[2021-06-03] MEDS: DOCUSATE SODIUM 100 MG CAPSULE PO SCH (09:08)
[2021-06-03] MEDS: DILTIAZEM HCL 120 MG CAP.SR.24H PO SCH (09:09)
[2021-06-03] MEDS: methIMAzole 5 MG TABLET PO SCH (09:09)
[2021-06-03] MEDS: FERROUS SULFATE 325 MG TABLET.DR PO SCH (09:09)
[2021-06-03] MEDS: SILVER SULFADIAZINE 1%, 25 GM TOPICAL CREAM (SSD) TP SCH (09:10)
[2021-06-03] MEDS: NYSTATIN/TRIAMCIN 15 GM TOPICAL CREAM TP SCH (09:10)
[2021-06-03 11:30] VITALS: BP_SYST 121
--- NOTE | 2021-06-03 13:30 | NUR ---
RN asked patient to see his wounds, but he refused vehemently, saying that " I want a doctor to see my wounds".
[2021-06-03] MEDS: MUPIROCIN 2% TOPICAL OINTMENT 22 GM NS SCH (14:09)
[2021-06-03 15:30] VITALS: BP_SYST 117
--- NOTE | 2021-06-03 15:39 | NUR ---
DISCHARGE PLANNING Discussed dc planning with pt at bedside, is agreeable with plan for [facility] SNF today, gave pt snf info. Called & discussed with Dr Padilla, gave ph order to dc to SNF today. Called & spoke with Wayne at [facility], pt accepted going to room 200C, anytime, report ph [phone]. faxed culture results as requested to Wayne, fax [phone]. Called & set up transportation with [facility] for 6 to 63pm fruit or nut picker. Updated pt's nurse. Packet to nsg station. [facility], room 200C, report [phone] [facility] 6 to 630pm fruit or nut picker, ph [phone]
[2021-06-03 15:45] VITALS: BP_SYST 117
--- NOTE | 2021-06-03 17:00 | NUR ---
[facility] called the picker time is delayed to 8pm
--- NOTE | 2021-06-03 18:00 | NUR ---
BS 130. No coverage needed.
[2021-06-03] MEDS: D5/0.45 NS 1,000 ML IV SCH (18:45)
--- NOTE | 2021-06-03 19:31 | NUR ---
Patient for D/C Documents signed & Transfer Consent signed by patient procedures explained verbalize understanding / .
[2021-06-03 20:00] VITALS: BP_SYST 135
--- NOTE | 2021-06-03 20:30 | NUR ---
Patient D/C to [facility] personal belongings sent / [facility] stable all documents sent with patient Transfer Check List carried out / .
== END 2021-06-03 21:05 | DRG 463 ==
LOC: SED 16:16 → STU 18:28 → SMU 05-16 20:06
PROVIDERS: ADMIT Internal Medicine; ATTEND Internal Medicine
PROC: 0JBN0ZZ Excision of Right Lower Leg Subcutaneous Tissue and Fascia, Open Approach (ICD-10-PCS; principal; 2021-05-22 20:55)
PROC: 30233N1 Transfusion of Nonautologous Red Blood Cells into Peripheral Vein, Percutaneous Approach (ICD-10-PCS; 2021-05-27)
PROC: 0Y6C0Z3 Detachment at Right Upper Leg, Low, Open Approach (ICD-10-PCS; 2021-05-30)
DX: T87.43 Infection of amputation stump, right lower extremity (principal); E43 Unspecified severe protein-calorie malnutrition; I96 Gangrene, not elsewhere classified; N17.9 Acute kidney failure, unspecified; L03.115 Cellulitis of right lower limb; E11.52 Type 2 diabetes mellitus with diabetic peripheral angiopathy with gangrene; I69.354 Hemiplegia and hemiparesis following cerebral infarction affecting left non-dominant side; Z68.1 Body mass index [BMI] 19.9 or less, adult; D63.8 Anemia in other chronic diseases classified elsewhere; E78.5 Hyperlipidemia, unspecified; K21.9 Gastro-esophageal reflux disease without esophagitis; E03.9 Hypothyroidism, unspecified; Z96.641 Presence of right artificial hip joint; I48.0 Paroxysmal atrial fibrillation; E11.22 Type 2 diabetes mellitus with diabetic chronic kidney disease; I12.9 Hypertensive chronic kidney disease with stage 1 through stage 4 chronic kidney disease, or unspecified chronic kidney disease; N18.9 Chronic kidney disease, unspecified; E05.90 Thyrotoxicosis, unspecified without thyrotoxic crisis or storm; L89.90 Pressure ulcer of unspecified site, unspecified stage; Z20.822 Contact with and (suspected) exposure to COVID-19; Y83.5 Amputation of limb(s) as the cause of abnormal reaction of the patient, or of later complication, without mention of misadventure at the time of the procedure; Z89.512 Acquired absence of left leg below knee; Z91.19 Patient's noncompliance with other medical treatment and regimen; Z91.013 Allergy to seafood; Z86.718 Personal history of other venous thrombosis and embolism; Z79.01 Long term (current) use of anticoagulants; Z79.82 Long term (current) use of aspirin; Z79.4 Long term (current) use of insulin; Z79.899 Other long term (current) drug therapy; Y92.89 Other specified places as the place of occurrence of the external cause
CPT/HCPCS: 36415; 71045; 73552; 80048; 80053; 80202; 82272; 82962; 83605; 85025; 85610-TC; 85730-TC; 86140; 86886; 86900; 86901; 86920; 87040-TC; 87070-TC; 87081; 87186-TC; 88304; 88307; 93005; 96365; 96367; 99285; G0378; J0131; J1100; J1170; J1815; J1885; J2001; J2250; J2405; J2543; J2704; J2765; J3010; J3370; J7120; P9021